=== PATIENT | male | born 1935 | race Caucasian/White ===

== ENCOUNTER 2023-06-20 12:21 | Emergency (ER) | payer MEDICARE, SELFPAY ==
[2023-06-20 12:34] VITALS: BP 113/56
--- NOTE | 2023-06-20 13:20 | ED.GENMED ---
History of Present Illness
General
Chief Complaint: Skin Problem
Source: patient and spouse
Exam Limitations: none
Time Seen by Provider: 06/20/23 13:08
Nursing documentation reviewed up to this point in time: agreed with
Travel History
Have you had any contact with someone who has COVID-19?: No
Do you have any symptoms of coronavirus? Fever > 100 degrees, chills, cough, shortness of breath, sore throat, loss of taste or smell, muscle aches, or headache?: No
History of Present Illness
History of Present Illness:
Patient is 87-year-old male who presents to the ER for evaluation. reports patient hit his left hand today on a door sustaining a skin tear and she was not able to get it to stop bleeding. Patient is on blood thinners. reports bleeding
has not stopped. Unsure of last tetanus.
Past History
Past History
ED Past Medical History: Arrthythmia (Atrial fibrillation), HTN, Hypercholesterolemia and Other (Renal insufficiency)
ED Past Surgical History: None
Patient has exhibited threatening behavior?: No
PSI?: No
Social History
Tobacco: Non-smoker
Alcohol: None
Drug: None
Personal:
Living: with family
Review of Systems
Review of Systems
Allergies reviewed?: Yes
Other source history: family
All Other Systems: ROS reviewed and negative except as documented in HPI and ROS
Constitutional: Reports no symptoms; Denies fever, fatigue or chills
Musculoskeletal: Reports other (skin tear to left hand )
Skin: Reports other (skin tear to left hand )
Neurological: Reports no symptoms
Psychiatric: Reports no symptoms
Phy Exam
General Physical Exam
General Presentation: no apparent distress
General age: appears stated age
General Skin: warm and dry
General Habitus: normal
General Mental: alert
General Hydration: appears well hydrated
Neurological Exam
Neurological Exam: alert and oriented x3
Musculoskeletal Exam
Musculoskeletal Exam: other ( LUE with scabbed over abrasion to dorsal left hand no bleeding )
Skin Exam
Skin Exam: normal color and warm/dry
Psychiatric Exam
Psychiatric Exam: normal mood/affect
Course
Orders/Labs/Results
Orders:
Orders
06/20/23 13:23
Tetanus/Diphth/Acelpertussis [Adacel] 0.5 ml IM .ONCE ONE
Vital Signs
Initial and Last Documented VS:
Initial Vital Signs
Temp Pulse Resp BP Pulse Ox
98.6 F 51 16 113/56 98
06/20/23 12:34 06/20/23 12:34 06/20/23 12:34 06/20/23 12:34 06/20/23 12:34
Last Documented Vital Signs
Temp Pulse Resp BP Pulse Ox
98.6 F 51 16 113/56 98
06/20/23 12:34 06/20/23 12:34 06/20/23 12:34 06/20/23 12:34 06/20/23 12:34
MDM/Problems Addressed
Differential Diagnosis Includes:
Not limited to abrasion, bleeding wound
MDM/Problems Addressed:
Patient has a scabbed over wound to left dorsal hand that is not bleeding. Tetanus was updated. I did redress and clean wound and discussed wound care with and patient.
Chronic conditions affecting care:
Patient is on blood thinners
*Critical Care Note
Total Time (30-74mins, 75-104mins- exclusive of procedures): Not Applicable
ED Attending Note
-
Portions of this chart may have been created with voice recognition software.� Occasional wrong word or��sound alike� substitutions may have occurred due to the inherent limitations of voice recognition software.
Discharge Plan
Departure
Patient Disposition: Home (Routine Discharge)
Date of Disposition: 06/20/23
Time of Disposition: 13:23
Patient with high blood pressure during this ER visit?: No
Condition: Fair
Covid-19: Not Applicable
Discharge Problem:
Abrasion
Instructions: Skin Abrasions (DC)
Prescriptions:
No Action
allopurinol 100 MG tablet
100 mg PO DAILY
simvastatin 20 MG tablet
20 mg PO QPM
finasteride 5 MG tablet
5 mg PO DAILY
lisinopril 20 MG tablet
20 mg PO DAILY
escitalopram oxalate 10 MG tablet
10 mg PO DAILY
Xarelto 15 mg Tablet
15 mg PO QPM
Hold Instructions: Resume on 06/23/22.
Patient Comments:
doesn't know mg
acetaminophen [Tylenol] 325 mg Tablet
650 mg PO Q4HPRN PRN (Reason: mild pain)
furosemide 20 mg tablet
20 mg PO DAILY
PreserVision AREDS 4,296 mcg-226 mg-90 mg Capsule
1 cap PO BID
carvedilol 3.125 mg Tablet
3.125 mg PO BID Qty: 60 0RF
pantoprazole [Protonix] 40 mg tablet,delayed release (DR/EC)
40 mg PO BID Qty: 60 0RF
doxycycline hyclate 100 mg capsule
100 mg PO BID Qty: 14 0RF
Referrals:
Boris Espana MD [Family Provider] -
Activity Restrictions/Additional Instructions:
Keep wound clean and dry and covered for 24 to 48 hours after 1 to 2 days remove outer dressings be sure to wet the area so wound does not stay to scab. Wash twice a day with soap and water pat dry apply small layer of antibiotic ointment to the
area keep covered. See family doctor in the next 2 to 3 days for reevaluation and wound check. Return if any worsening of symptoms signs of infection increased pain swelling redness drainage fever chills or bleeding.
Interventions
Interventions:
*General Assessment Last Done: 06/20/23 14:28
*ED COVID-19 Vaccine History Last Done: 06/20/23 12:34
*Nursing Disposition Last Done: 06/20/23 14:28
ED-Skin Assessment Last Done: 06/20/23 12:50
Discharge Date and Time
Discharge Date/Time: 06/20/23 14:10
[2023-06-20] MEDS: ADACEL 0.5 ML IM (13:49)
== END 2023-06-20 14:10 | disposition home or self-care (01) ==
LOC: EMR 12:21
PROVIDERS: EMERGENCY PHYSICIAN Student in an Organized Health Care Education/Training Program; FAMILY PHYSICIAN Family Medicine
DX: S60.512A Abrasion of left hand, initial encounter (principal); W22.09XA Striking against other stationary object, initial encounter; I48.91 Unspecified atrial fibrillation; E78.00 Pure hypercholesterolemia, unspecified; N28.9 Disorder of kidney and ureter, unspecified; I51.7 Cardiomegaly; I11.0 Hypertensive heart disease with heart failure; I50.9 Heart failure, unspecified; M19.90 Unspecified osteoarthritis, unspecified site; M10.9 Gout, unspecified; Z79.01 Long term (current) use of anticoagulants; Z96.653 Presence of artificial knee joint, bilateral
CPT/HCPCS: 99282; 90471; 90715

== ENCOUNTER 2023-07-16 05:39 | Inpatient (IN) | payer MEDICARE, SELFPAY ==
[2023-07-16] VITALS (30 sets, daily range): BP systolic 101–132; BP diastolic 55–77; PULSE 2–80; O2SAT 97; BMI 25.7; BMI 24.6
[2023-07-16 03:15] LABS: % Basophils 0.3 % (0-2); % Eosinophils 0.7 % (0-6); % Immature Granulocytes 0.4 % (0-0.5); % Lymphocytes 3.8 % (20.5-51.1); % Monocytes 5.4 % (1.7-9.3); % Neutrophils 89.4 % (42.2-75.2); Absolute Basophils 0.1 10^3/uL (0-0.2); Absolute Eosinophils 0.1 10^3/uL (0-0.7); Absolute Immature Granulocytes 0.1 10^3/uL (0-0.05); Absolute Lymphocytes 0.7 10^3/uL (1.2-3.4); Absolute Neutrophils 16.2 10^3/uL (1.4-6.5); Hemoglobin 11.4 g/dL (13.0-18.0); Mean Corp Hgb Conc. 32.6 g/dL (33.0-37.0); Mean Corpuscular Hgb 31.3 pg (27.0-31.0); Mean Corpuscular Volume 96.2 fL (80.0-94.0); Mean Platelet Volume 10.1 fL (7.4-10.4); Nucleated Red Blood Cells % 0 % (-); Platelet Count 141 10^3/uL (130-400); Red Blood Cell Count 3.64 10^6/uL (4.70-6.10); Red Cell Dist. Width 16.5 % (11.5-14.5); White Blood Cell Count 18.1 10^3/uL (4.8-10.8)
[2023-07-16 03:38] LABS: ALT (SGPT) 37 U/L (0-50); AST (SGOT) 63 U/L (17-59); Albumin 3.8 g/dl (3.5-5.0); Alkaline Phosphatase 204 U/L (38-126); Blood Urea Nitrogen 71 mg/dl (9-20); Carbon Dioxide 24 mmol/L (22-30); Chloride 103 mmol/L (98-107); Estimated Creatinine Clearance 28 ml/min; Glucose 133 mg/dl (70-99); Potassium 4.6 mmol/L (3.5-5.1); Sodium 139 mmol/L (135-145); Total Bilirubin 1.3 mg/dl (0.2-1.3); Total Protein 7.5 g/dl (6.3-8.2); eGFR 35.76
[2023-07-16 03:41] LABS: NT-proBNP 9200 pg/ml; Troponin I 0.052 ng/ml
--- NOTE | 2023-07-16 03:46 | ED.GENMED ---
History of Present Illness
<Bryan Al DO - Last Filed: 07/16/23 04:26>
General
Chief Complaint: Breathing Problem
Time Seen by Provider: 07/16/23 03:09
Travel History
Have you had any contact with someone who has COVID-19?: No
Do you have any symptoms of coronavirus? Fever > 100 degrees, chills, cough, shortness of breath, sore throat, loss of taste or smell, muscle aches, or headache?: No
<IBETH Long - Last Filed: 07/16/23 06:43>
General
Source: patient and family
History of Present Illness
History of Present Illness:
Pt is an 87 year old male with a past medical history of CHF, afib, cardiomegaly, HTN, hyperlipidemia arriving by EMS with SOB that began this morning. Pt woke this evening struggling to breath and called 911. Upon arrival pt's O2 on room air was
64%, was placed on CPAP and brought up to 88%. EMS note adventitious lung sounds audible from a distance. His family states he had some chills this morning but they deny any cough, fever, N/V/D, abdominal pain, headache, dizziness, or recent falls.
They note pt has a history of falls but has not fallen since beginning to use a walker.
Past History
<Bryan Al DO - Last Filed: 07/16/23 04:26>
Past History
ED Past Medical History: Arrthythmia (Atrial fibrillation), HTN, Hypercholesterolemia and Other (Renal insufficiency)
ED Past Surgical History: None
Patient has exhibited threatening behavior?: No
PSI?: No
Social History
Tobacco: Non-smoker
Alcohol: None
Drug: None
Personal:
Living: with family
<IBETH Long - Last Filed: 07/16/23 06:43>
General Physical Exam
General Presentation: well appearing
General age: appears stated age
General Skin: warm and dry
General Habitus: elderly
General Mental: alert
General Hydration: dry mucous membranes
Eye Exam
Eye Exam: conjunctiva normal
Cardiovascular Exam
Cardiovascular Exam: regular rate/rhythm, no edema, no gallop, no murmur and normal peripheral pulses
Pulmonary Exam
Respirations: moderate effort
Breath Sounds: Rhonchi: right upper and right lower
Gastrointestinal Exam
Gastrointestinal Exam: non tender, soft and non distended
Neurological Exam
Neurological Exam: alert
Skin Exam
Skin Exam: normal color and warm/dry
Psychiatric Exam
Psychiatric Exam: normal mood/affect
Scores
<Bryan Al DO - Last Filed: 07/16/23 04:26>
Heart Failure Risk
Heart Failure Risk Score: Yes
History of Stroke or TIA: No
History of intubation for respiratory distress: No
Heart rate on ED arrival >/= 110: No
SaO2 <90% on arrival on room air: Yes
HR >/=110 during 3min walk test (or too ill to perform test): Yes
ECG has acute ischemic changes: No
Urea >/=12mmol/L (BUN 33.6mg/dL): Yes
Serum CO2>/=35mmol/L: No
Troponin I or T elevated to [place] Level (0.4mg/dL): No
NT-proBNP >/=5,000ng/L (5,000pg/ml): Yes
HF Risk Score: 5
Admission Status: VERY HIGH RISK 39.8% Consider admission to hospital
<IBETH Long - Last Filed: 07/16/23 06:43>
Heart Failure Risk
HF Risk Score: 5
Admission Status: VERY HIGH RISK 39.8% Consider admission to hospital
Course
<Bryan Al, DO - Last Filed: 07/16/23 04:26>
Orders/Labs/Results
Orders:
Orders
07/16/23 03:06
Electrocardiogram (*1) Urgent
Reason for Study: Other
Other Reason for Exam: Respiratory Distress
Cardiac Monitoring- Treatment ONCE
EKG- Treatment ONCE
07/16/23 03:09
Complete Blood Count/With Diff Urgent
Comprehensive Metabolic Panel Urgent
NT-proBNP Urgent
Troponin I Urgent
07/16/23 03:18
CR Chest Portable - 1 View Urgent
Comment:
Reason For Exam: SOB
Reason Study Needs to be Portable: Patient Unstable
07/16/23 03:54
Furosemide [Lasix] 80 mg IV NOW STA
07/16/23 03:55
Piperacillin/Tazo 4.5 Gram [Zosyn] 4.5 gram in 100 ml IV NOW
07/16/23 05:23
Admit/Transfer Patient As Directed
Co-Sign Provider:
Level of Care: Inpatient admission
Assign to:: IMU- Intermediate Care
Physician / Group: Rangel
Diagnosis: Pneumonia, Acute Hypoxemic Resp Failure
Reason for Hospitalization: Pneumonia, Acute Hypoxemic Resp Failure
Expected length of stay greater than two midnights?: Yes
ELOS- Estimated Length of Stay in days: 3
I certify the patient meets the requirements for IP care: Yes
07/16/23 05:24
Code Status As Directed
Resuscitation Status: Do not resuscitate
Reached after discussion with pt or family/Healthcare POA: Yes
07/16/23 05:26
DNR Bracelet Application ONCE
Abnormal Lab Results
07/16/23
03:09
WBC 18.1 H 10^3/uL
(4.8-10.8)
RBC 3.64 L 10^6/uL
(4.70-6.10)
Hgb 11.4 L g/dL
(13.0-18.0)
Hct 35.0 L %
(39.0-52.0)
MCV 96.2 H fL
(80.0-94.0)
MCH 31.3 H pg
(27.0-31.0)
MCHC 32.6 L g/dL
(33.0-37.0)
RDW 16.5 H %
(11.5-14.5)
Abs Immat Gran (auto) 0.1 H 10^3/uL
(0-0.05)
Absolute Neuts (auto) 16.2 H 10^3/uL
(1.4-6.5)
Absolute Lymphs (auto) 0.7 L 10^3/uL
(1.2-3.4)
Absolute Monos (auto) 1.0 H 10^3/uL
(0.1-0.6)
Neutrophils % 89.4 H %
(42.2-75.2)
Lymphocytes % 3.8 L %
(20.5-51.1)
BUN 71 H mg/dl
(9-20)
Creatinine 1.8 H mg/dL
(0.7-1.3)
Glucose 133 H mg/dl
(70-99)
AST 63 H U/L
(17-59)
Alkaline Phosphatase 204 H U/L
(38-126)
Troponin I 0.052 H* ng/ml
07/16/23 03:09
07/16/23 03:09
Vital Signs
Initial and Last Documented VS:
Initial Vital Signs
Temp Pulse Resp BP Pulse Ox
97.8 F 79 28 124/69 91
07/16/23 03:07 07/16/23 03:07 07/16/23 03:07 07/16/23 03:07 07/16/23 03:07
Last Documented Vital Signs
Temp Pulse Resp BP Pulse Ox
97.8 F 76 25 123/55 94
07/16/23 03:07 07/16/23 06:30 07/16/23 06:30 07/16/23 06:00 07/16/23 06:30
<IBETH Long - Last Filed: 07/16/23 06:43>
Orders/Labs/Results
Orders:
Orders
07/16/23 03:06
Electrocardiogram (*1) Urgent
Reason for Study: Other
Other Reason for Exam: Respiratory Distress
Cardiac Monitoring- Treatment ONCE
EKG- Treatment ONCE
07/16/23 03:09
Complete Blood Count/With Diff Urgent
Comprehensive Metabolic Panel Urgent
NT-proBNP Urgent
Troponin I Urgent
07/16/23 03:18
CR Chest Portable - 1 View Urgent
Comment:
Reason For Exam: SOB
Reason Study Needs to be Portable: Patient Unstable
07/16/23 03:54
Furosemide [Lasix] 80 mg IV NOW STA
07/16/23 03:55
Piperacillin/Tazo 4.5 Gram [Zosyn] 4.5 gram in 100 ml IV NOW
07/16/23 05:23
Admit/Transfer Patient As Directed
Co-Sign Provider:
Level of Care: Inpatient admission
Assign to:: IMU- Intermediate Care
Physician / Group: Rangel
Diagnosis: Pneumonia, Acute Hypoxemic Resp Failure
Reason for Hospitalization: Pneumonia, Acute Hypoxemic Resp Failure
Expected length of stay greater than two midnights?: Yes
ELOS- Estimated Length of Stay in days: 3
I certify the patient meets the requirements for IP care: Yes
07/16/23 05:24
Code Status As Directed
Resuscitation Status: Do not resuscitate
Reached after discussion with pt or family/Healthcare POA: Yes
07/16/23 05:26
DNR Bracelet Application ONCE
Abnormal Lab Results
07/16/23
03:09
WBC 18.1 H 10^3/uL
(4.8-10.8)
RBC 3.64 L 10^6/uL
(4.70-6.10)
Hgb 11.4 L g/dL
(13.0-18.0)
Hct 35.0 L %
(39.0-52.0)
MCV 96.2 H fL
(80.0-94.0)
MCH 31.3 H pg
(27.0-31.0)
MCHC 32.6 L g/dL
(33.0-37.0)
RDW 16.5 H %
(11.5-14.5)
Abs Immat Gran (auto) 0.1 H 10^3/uL
(0-0.05)
Absolute Neuts (auto) 16.2 H 10^3/uL
(1.4-6.5)
Absolute Lymphs (auto) 0.7 L 10^3/uL
(1.2-3.4)
Absolute Monos (auto) 1.0 H 10^3/uL
(0.1-0.6)
Neutrophils % 89.4 H %
(42.2-75.2)
Lymphocytes % 3.8 L %
(20.5-51.1)
BUN 71 H mg/dl
(9-20)
Creatinine 1.8 H mg/dL
(0.7-1.3)
Glucose 133 H mg/dl
(70-99)
AST 63 H U/L
(17-59)
Alkaline Phosphatase 204 H U/L
(38-126)
Troponin I 0.052 H* ng/ml
07/16/23 03:09
07/16/23 03:09
Vital Signs
Initial and Last Documented VS:
Initial Vital Signs
Temp Pulse Resp BP Pulse Ox
97.8 F 79 28 124/69 91
07/16/23 03:07 07/16/23 03:07 07/16/23 03:07 07/16/23 03:07 07/16/23 03:07
Last Documented Vital Signs
Temp Pulse Resp BP Pulse Ox
97.8 F 76 25 123/55 94
07/16/23 03:07 07/16/23 06:30 07/16/23 06:30 07/16/23 06:00 07/16/23 06:30
<IBETH Long - Last Filed: 07/16/23 06:43>
*Pulse Oximetry
Patient hypoxic: no
*Critical Care Note
Total Time (30-74mins, 75-104mins- exclusive of procedures): Not Applicable
ED Attending Note
<Bryan Al DO - Last Filed: 07/16/23 04:26>
ED Attending Note
Patient seen and examined by attending physician: Yes
I performed the substantive portion of visit, reviewed & personally made and approve the management plan that is documented in note by myself or STUART.: Yes
ED Attending Note:
This a pleasant 87-year-old male brought in from home by [facility] with respiratory distress. called 911 when patient was having difficulty breathing. Upon arrival EMS reported his oxygen saturation was 64%. They gave him
nonrebreather and eventually applied CPAP. Oxygen saturation went up to 88%. Patient was also given nitroglycerin and route. Patient was seen in conjunction with the PA student. I have reviewed and agree with the history and treatment plan
presented. On my independent physical exam, patient is awake, alert, and oriented x3, resting much more comfortably when his CPAP was switched out for BiPAP. Patient does have a living will which suggest that BiPAP is acceptable but no invasive
procedures are permitted. Patient is a DNR and DNI.
Vital signs are stable. Patient not hypoxic
Nursing note reviewed. I agree with nursing documentation up to this point in time.
Home Meds and allergies reviewed.
NUMBER AND COMPLEXITY OF PROBLEMS ADDRESSED AT THE ENCOUNTER
� Chronic conditions affecting care: CHF, atrial fibrillation, cardiomegaly, hypertension, hyperlipidemia
� Acute Exacerbation and/or Progression of Chronic Illness: CHF
� Differential Diagnosis includes:
AMOUNT AND/OR COMPLEXITY OF DATA TO BE REVIEWED AND ANALYZED
I performed an independent evaluation of the following and my interpretation is:
EKG: Sinus tachycardia rate of 72 wide QRS rhythm. Left bundle branch block present seen on previous EKG. No evidence of acute ischemia present.
CT:
X-rays:
Ultrasound:
Laboratory Studies: Troponin 0.052, and elevated. proBNP is 9200.
Other:
Review of other/old records:
Clinical information was obtained by an independent historian:
Prescriptions/Medications Considered but not given:
Further testing considered but not performed:
RISK OF COMPLICATIONS AND/OR MORBIDITY OR MORTALITY OF PATIENT MANAGEMENT
Social determinants of health affecting care: Good Social Support
Discussion with other providers:
Escalation of care including admission/observation vs risk of discharge considered:
CRITICAL CARE NOTE:
Total Time (exclusive of procedures):
Update:
-
Portions of this chart may have been created with voice recognition software.� Occasional wrong word or��sound alike� substitutions may have occurred due to the inherent limitations of voice recognition software.
Discharge Plan
Departure
Patient Disposition: Admit
Date of Disposition: 07/16/23
Time of Disposition: 04:25
Admit to: Telemetry
Presentation/result/management discussed w/ accepting MD/DO: Hospitalist
Condition: Fair
Discharge Problem:
Pneumonia, CHF (congestive heart failure), DNR (do not resuscitate)
Interventions
Interventions:
*Risk Screen - Suicide Last Done: 07/16/23 03:07
*General Assessment Last Done: 07/16/23 03:07
*Neglect/Abuse Screening Last Done: 07/16/23 03:07
ED- Fall Risk Assessment Last Done: 07/16/23 04:00
*ED COVID-19 Vaccine History Last Done: 07/16/23 03:16
ED- Cardiac Assessment Last Done: 07/16/23 04:00
ED- Pulmonary Assessment Last Done: 07/16/23 04:00
[2023-07-16] MEDS: LASIX 40 MG IV (04:18)
[2023-07-16] MEDS: ZOSYN 100 IV (04:25)
--- NOTE | 2023-07-16 05:29 | HPS.HSE ---
Family Physician
-
Family Physician: Boris Espana
Chief Complaint
-
SOB / Cold
History of Present Illness
Patient is an 87y M with PMH significant for hypertension, A-Fib, CHF and CKD who presents to ED complaining of feeling cold and SOB this evening. History obtained from patient and his family at the bedside. Family notes that patient called for
them around 1:30 this AM. He complained of feeling cold and notes that he was shivering uncontrollably. She gave him extra blankets but could not get him warm. They called the PCP office who advised ED evaluation. EMS was called and patient
had very low SpO2 on initial assessment. He was brought to the ED for further evaluation and was started on BiPAP in the ED.
Patient was treated with IV Lasix and IV abx and at the time of my examination he is bright and alert on BiPAP and notes that he feels '100% better'.
Family states that patient has been feeling relatively well of late.
He has not had any noted cough, sore throat, etc. No significant edema or recent weight gain (fluctuates between 162 - 165 per patient).
No known sick contacts and no recent travel.
Medical History
Past Medical History
Past Medical History: Reports Other
Additional Past Medical History:
Cardiomyopathy / Chronic HFrEF
Paroxysmal Atrial Fibrillation
Hypertension
CKD III
Anxiety / Depression
Past Surgical History: Reports Other
Additional Past Surgical History:
Bilateral TKA
Lumbar Discectomy
SVT Ablation
Social History
Tobacco: Non-smoker
Alcohol: Occasional
Drug: None
Personal:
Living: With Family
Family History
Family History: Not pertinent
Allergies / Home Medications
Allergies reflects when Allergies were last updated in [employer].
Home Medications with original date entered in [employer]
Allergy/Medication List:
Allergies
Allergy/AdvReac Type Severity Reaction Status Date / Time
cephalexin Allergy Nausea / Verified 06/20/23 12:36
Vomiting
morphine Allergy Unknown Verified 06/20/23 12:36
Sulfa (Sulfonamide Allergy Unknown Verified 06/20/23 12:36
Antibiotics)
Home Medications
allopurinol 100 mg tablet 100 mg PO DAILY Gout 07/13/14
finasteride 5 mg tablet 5 mg PO DAILY Urinary issue 07/13/14
simvastatin 20 mg tablet 20 mg PO QPM High cholesterol 07/13/14
lisinopril 20 mg tablet 10 mg PO DAILY Blood pressure 04/07/16
escitalopram oxalate 10 mg tablet 5 mg PO DAILY Depression 12/07/17
acetaminophen 325 mg tablet (Tylenol) 650 mg PO Q4HPRN PRN mild pain 06/10/22
furosemide 20 mg tablet 40 mg PO BID Fluid retention/Swelling 06/17/22
vitamins A,C,[id number] 4,296 mcg-226 mg-90 mg capsule (PreserVision AREDS) 1 cap PO BID Supplement 06/17/22
carvedilol 3.125 mg tablet 3.125 mg PO BID #60 tabs 08/12/22
apixaban 2.5 mg tablet (Eliquis) 2.5 mg PO BID 07/16/23
Review of Systems
-
History Source: Patient and Family
A 12 point ROS was completed and negative except as noted: Yes
Constitutional: Reports Fatigue and Chills; Denies Fever
EENT: Denies Sore Throat
Respiratory: Reports Trouble Breathing; Denies Cough or Hemoptysis
Cardiac: Denies Chest Pain or Palpitations
Abdomen/GI: Denies Abdominal Pain, Nausea, Vomiting or Diarrhea
: Denies Dysuria or Frequency
Musculoskeletal: Denies Joint Pain or Edema
Neurological: Denies Dizzy or Headache
Psych: Denies Depression or Anxiety
Physical Exam
Vital Signs
Vital Signs
Temp Pulse Resp BP Pulse Ox
97.8 F 63 21 105/57 97
03/22/24 03:07 07/16/23 05:15 07/16/23 05:15 07/16/23 05:00 07/16/23 05:15
Physical Exam
General: Other (87y M resting comfortably in the ED on BiPAP.)
HEENT: Moist mucous membranes, PERRLA and Other (Pos JVD to the angle of the mandible.)
Respiratory: Other (Scattered rales. Coarse rhonchi over the R lower lung rodriguez.)
Cardiac: S1/S2, Irregular Rhythm and Murmur (III/ JEANETTE)
GI: Soft, Non Tender, Non Distended and Normal Bowel Sounds
Musculoskeletal: No Clubbing, No Cyanosis and Other (Trace - 1+ edema b/l ankles.)
Neuro: AO x 3
Laboratory Results
-
07/16/23 03:09
07/16/23 03:09
Laboratory Results
Total Bilirubin 1.3 mg/dl (0.2-1.3) 07/16/23 03:09
AST 63 U/L (17-59) H 07/16/23 03:09
ALT 37 U/L (0-50) 07/16/23 03:09
Alkaline Phosphatase 204 U/L (38-126) H 07/16/23 03:09
Troponin I 0.052 ng/ml H* 07/16/23 03:09
Impression/Plan
-
A/P: Patient is an 87y M with PMH significant for A-Fib, CHF and HTN who presents to ED for evaluation of shaking chills, SOB and hypoxemia.
RLL Pneumonia
Acute Hypoxemic Respiratory Failure secondary to the above
- Admit for further evaluation and treatment.
- Patient with rigors / chills at home and CXR with patchy R base infiltrate c/w pneumonia.
- IV abx, mucolytics, supportive care.
- Continue O2 support - trial off of BiPAP here in the ED as patient appears very comfortable at present.
- Follow for clinical improvement and transition to PO abx when appropriate.
- Patient family deny any issues with swallowing, coughing / choking during meals, etc.
Acute on Chronic HFrEF
- Suspect that this is largely decompensation secondary to cor pulmonale / primary pulm process / pneumonia as noted above.
- Patient compliant with diuretic, salt restriction, daily weights, etc.
- Has metolazone to take PRN for weight > 170 - and he never reaches that number.
- Continue IV Lasix for now and follow daily weights, I/Os, etc.
- Treat underlying pneumonia as noted above.
- Return to usual PO regimen once appropriate.
- Update Echo - last done 05/2022 with LVEF = 35-40%, moderate TR / pulmonary hypertension.
Abnormal Troponin
- Suspect this is secondary to CHF / CKD and not an acute process.
- EKG with chronic LBBB.
- Continue to trend and consider Cardio evaluation if any new symptoms / changes in troponin.
Paroxysmal Atrial Fibrillation
- Stable. Continue usual med regimen including Eliquis for stroke risk reduction.
CKD III-IV
- Stable. SCr = 1.8 today. Last value here was 1.3; however, recent outpatient SCr = 2.03 (07/08).
- Follow for changes with diuresis / volume status.
DVT Prophylaxis: On Eliquis
Code Status: DNR
--- NOTE | 2023-07-16 08:32 | W.PN.UPDATE ---
Update Note
Progress Note Update
Admitted this morning with headache for chills and shortness of breath.
Noted to have right-sided by bilobar pneumonia and possibly secondary CHF decompensation.
Patient currently in ICU on 10 L of oxygen. He feels comfortable he feels improved. No further chills. Breathing okay at rest. No chest pains. Cough present but does not bring up much phlegm.
Nontoxic looking. Blood pressure stable. Saturating 97% on nasal cannula.
No respiratory distress.
No active bronchospasm but he has crackles bilaterally.
Continue with antibiotics and diuretics as planned. Follow-up echocardiogram.
Wean oxygen. For now transfer to IMU as he is still requiring 10 L of oxygen.
[2023-07-16] MEDS: PROSCAR 5 MG PO (09:00)
[2023-07-16] MEDS: MUCINEX 600 MG PO ×2 (09:00→20:07)
[2023-07-16] MEDS: COREG 3.125 MG PO ×2 (09:00→20:07)
[2023-07-16] MEDS: ZESTRIL 10 MG PO (09:00)
[2023-07-16] MEDS: ELIQUIS 2.5 MG PO ×2 (09:00→20:08)
[2023-07-16] MEDS: ZYLOPRIM 100 MG PO (09:00)
[2023-07-16 10:01] LABS: Troponin I 0.101 ng/ml
[2023-07-16 10:03] LABS: COVID-19 Antigen Negative (Negative)
[2023-07-16] MEDS: ZOSYN 50 IV ×3 (11:00→21:40)
[2023-07-16] MEDS: LEXAPRO 5 MG PO (12:00)
--- NOTE | 2023-07-16 12:06 | PTOTSP ---
ST Evaluation
Oropharyngeal function appears intact at the bedside
Pt received awake/alert seated upright on edge of bed with meal of regular solids/thin liquids. Denied any difficulty swallowing or s/sx of aspiration leading up to admission. Respirations appeared even/unlabored on 10Lo2 via nasal cannula. SPO2
remained stable >98% throughout eval.
Self fed trials of regular solids demo functional mastication and bolus was orally cleared. Thin liquids by cup and straw sip swallow appears timely. No overt s/sx of aspiration observed.
Recommend
1. Continue regular solids/thin liquids
2. Standard aspiration precautions
3. Meds oral with sips of water
4. ELECTRO MECHANICAL ENGINEER signing off please reconsult as needed
--- NOTE | 2023-07-16 12:39 | CM ---
CM following re: discharge planning.
Discussed in rounds, reviewed pt's chart, met with pt.
Pt is an 87 year old male, admitted with primary dx of RLL Pneumonia. Pt currently requires 10 L midflow NC of O2.
Pt reports he lives with spouse in a 2SH, 4 steps to enter, has supportive son Kirill. Pt reports he ambulates with a walker and a cane, known to [facility] home.
PT and OT evaluations noted - home PT vs no needs recommended. pt preferred to resume [facility] at home.
PCP: Boris Espana
Pharmacy: [facility]
D/C plan: home with [facility]. Monitoring Oxygen requirement for a possible needs of home O2.
CM will follow with discharge plan updates as hospitalization progresses
--- NOTE | 2023-07-16 12:44 | PTCARENOTE ---
Pt arrived this am to ICU from the ER via stretcher. Pt is awake and alert, oriented x3, sl REDDING. Pt with 'possible SR' as per Dr Rankin, 'with first degree heart block, L BBB, and a widen QRS'. Pt denies any chest discomfort. trops elevated 0.052,
0.101. Cardiac echo done at bedside. P/T saw pt and speech/swallow cleared pt for reg food. Pt ate his breakfast without any difficulties. Pt assisted to chair, with nurse and walker, also once to bedside commode, where he had a large soft brown BM.
Pt voided several times today in urinal yellow urine. Pt received on 10 L NC, now on 8 L NC, tolerating well. O2 sat=98%. Lobes clear, sl diminished at bases.
[2023-07-16] MEDS: LIPITOR 10 MG PO (18:48)
--- NOTE | 2023-07-16 18:57 | PTCARENOTE ---
Pt remains OOB to chair x 5 hrs, and would like to stay out a little longer. Pt did ambulate to bedside commode with qne person assist and walker, tolerated very well. O2 weaned down throughout day to 6 L NC, O2 sat=95%. I/S con'ts to be done q 1
hr. Call rodriguez at bedside within reach.
--- NOTE | 2023-07-16 20:45 | PTCARENOTE ---
Assume care from AM RN. VSS. afebrile and no c/o pain. AAOx3, pleasant, UPPER [place], gen weakness. NSR to SB in the monitor. Lung sounds are diminished and fine crackles at the bases. SaO2 95-075 6L. Dyspneic w/ exertion, shallow. nonproductive cough. At
the pt is incontinent of bowel and bladder. pt appears comfortable in bed and call rodriguez within reach.
[2023-07-17] VITALS (15 sets, daily range): BP systolic 90–140; BP diastolic 47–82; PULSE 56; O2SAT 98; BMI 24.4
[2023-07-17] MEDS: ZOSYN 50 IV ×4 (04:08→21:25)
[2023-07-17 04:39] LABS: Hematocrit 29.9 % (39.0-52.0); Hemoglobin 9.9 g/dL (13.0-18.0); Mean Corp Hgb Conc. 33.1 g/dL (33.0-37.0); Mean Corpuscular Hgb 31.4 pg (27.0-31.0); Mean Corpuscular Volume 94.9 fL (80.0-94.0); Platelet Count 115 10^3/uL (130-400); Red Blood Cell Count 3.15 10^6/uL (4.70-6.10); Red Cell Dist. Width 16.4 % (11.5-14.5); White Blood Cell Count 9.2 10^3/uL (4.8-10.8)
[2023-07-17 05:06] LABS: ALT (SGPT) 26 U/L (0-50); AST (SGOT) 32 U/L (17-59); Albumin 3.4 g/dl (3.5-5.0); Alkaline Phosphatase 153 U/L (38-126); Blood Urea Nitrogen 73 mg/dl (9-20); Calcium 8.9 mg/dl (8.4-10.2); Carbon Dioxide 25 mmol/L (22-30); Chloride 100 mmol/L (98-107); Estimated Creatinine Clearance 27 ml/min; Glucose 105 mg/dl (70-99); Potassium 4.6 mmol/L (3.5-5.1); Sodium 136 mmol/L (135-145); Total Protein 6.7 g/dl (6.3-8.2); eGFR 33.51
[2023-07-17] MEDS: MUCINEX 600 MG PO ×2 (07:58→21:25)
[2023-07-17] MEDS: PROSCAR 5 MG PO (07:58)
[2023-07-17] MEDS: COREG 3.125 MG PO ×2 (07:59→21:26)
[2023-07-17] MEDS: ELIQUIS 2.5 MG PO ×2 (07:59→21:25)
[2023-07-17] MEDS: ZESTRIL 10 MG PO (08:00)
[2023-07-17] MEDS: ZYLOPRIM 100 MG PO (08:00)
[2023-07-17] MEDS: LEXAPRO 5 MG PO (08:03)
[2023-07-17] MEDS: LASIX 40 MG IV (08:03)
--- NOTE | 2023-07-17 08:27 | W.PN.HOSP.TC ---
Today's Communication/Plan
-
Continue with IV Zosyn
Consult cardiology
Transfer to telemetry
Assessment / Plan
Assessment / Plan
A/P:� Patient is an 87y M with PMH significant for A-Fib, CHF and HTN who presents to ED for evaluation of shaking chills, SOB and hypoxemia.
RLL Pneumonia
Acute Hypoxemic Respiratory Failure secondary to the above
�- Patient with rigors / chills at home and CXR with patchy R base infiltrate c/w pneumonia.
- Improving clinical symptoms, improving oxygenation, normalized white
�- cw IV abx, mucolytics, supportive care.
�- Continue O2 support .
�- Follow for clinical improvement and transition to PO abx when appropriate.
�- Patient family deny any issues with swallowing, coughing / choking during meals, etc.
- ROOFER HELPER VINYL COATING sonia noted - ok for regular diet
Acute on Chronic HFrEF
�- Suspect that this is largely decompensation secondary to cor pulmonale / primary pulm process / pneumonia as noted above.
�- Patient compliant with diuretic, salt restriction, daily weights, etc.
�- Has metolazone to take PRN for weight > 170 - and he never reaches that number.
�- Continue IV Lasix for now and follow daily weights, I/Os, etc;wt is the lowest based on available data in [employer]
�- Treat underlying pneumonia as noted above.
�- Return to usual PO regimen once appropriate.
�- Update Echo - last done 05/2022 with LVEF = 35-40%, moderate TR / pulmonary hypertension; EF slightly reduced to 30-35% and PASP is somewhat higher 72mmgHg
- Consult Cards
Abnormal Troponin
�- Suspect this is secondary to CHF / CKD and not an acute process.
�- EKG with chronic LBBB.
�- Continue to trend and consider Cardio evaluation if any new symptoms / changes in troponin.
Paroxysmal Atrial Fibrillation
�- Stable.� Continue usual med regimen including Eliquis for stroke risk reduction.
CKD III-IV
�- Stable.� SCr = 1.9 today.� Last value here was 1.3; however, recent outpatient SCr = 2.03 (07/08).
�- Follow for changes with diuresis / volume status.
DVT Prophylaxis:� On Eliquis
Code Status:� DNR
Tx to tele
Anticipated Discharge: > 48 hours
Subjective/Interval History
-
Date of Service: July 17, 2023
Improved breathing. Denies any chest pain. Denying any cough. No fever or chills.
Improved oxygenation-down from 10 L to 6 L.
Objective Data
-
Labs:
Laboratory Results
07/17/23
04:07
WBC 9.2
Hgb 9.9 L
Hct 29.9 L
Plt Count 115 L
Sodium 136
Potassium 4.6
Chloride 100
Carbon Dioxide 25
BUN 73 H
Creatinine 1.9 H
Glucose 105 H
Calcium 8.9
Total Bilirubin 2.0 H
AST 32
ALT 26
Alkaline Phosphatase 153 H
Vital Signs:
Vital Signs
Temp Pulse Resp BP Pulse Ox
97.3 F 56 17 130/74 97
07/17/23 08:11 07/17/23 08:03 07/17/23 06:00 07/17/23 08:03 07/17/23 06:00
I&O
07/16/23 07/17/23 07/18/23
06:59 06:59 06:59
Intake Total 845 / 845
Output Total 120 / 120 1850 / 1850
Balance -120 / -120 -1005 / -1005
Review of Systems
-
Constitutional: Denies Fever
EENT: Denies Sore Throat
Abdomen/GI: Denies Abdominal Pain, Nausea or Vomiting
Neuro: Denies Dizzy
Physical Exam
-
General: No Apparent Distress
HEENT: Moist Mucous Membranes
Respiratory: Crackles (Rt lower zone); Negative Wheezes
Cardiac: Regular Rhythm and S1/S2; Negative Tachycardic
GI: Soft
Neuro: AO x 3
Psych: Calm; Negative Confused
Data Reviewed
-
Labs: Labs Reviewed by me
--- NOTE | 2023-07-17 10:07 | CON.CAR ---
Addendum entered and electronically signed by Loki Sanchez MD 07/17/23 12:26:
87 yo male with PMH of CAD, ICM EF 30-35%, chronic systolic HF, CKD3b is admitted with PNA. We are consulted for HF. Today, he reports improved SOB, and no edema. Exam with RRR, II/ systolic murmur at RUSB, no edema. Cr 1.9.
Acute on chronic systolic HF. Improved s/p IV lasix. Transition to his home regimen tomorrow: lasix 80mg, and 120mg daily on alternating days.
NOAH: hold lisinopril pending labs in AM.
ICM. He declined cath as outpatient. Discussion has been ongoing regarding ANIMAL NUTRITIONIST-D.
Original Note:
Consultation
Consultation Request
Date/Time Consultation Requested: 07/17/23 7064
Date/Time Consultation Performed: 07/17/23 1015
Requesting Provider: Dr. Wren
Performing Provider: Sandra JUÁREZ for Dr. Sanchez
Reason for Consultation: CHF
Medical History
-
Chief Complaint: SOB
History of Present Illness:
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
moderate/severe TR, mildly dilated aortic root, dyslipidemia, and CKD3b who is here for evaluation of SOB, which started two nights ago. Apparently also had chills. His sats were in the 60's and required BiPAP. CXR was concerning for PNA. He is on
ABX. He received IV lasix as well. He is now feeling improved and is on O2 by nasal cannula without any distress. He denies any CP.
Past Medical History
Past Medical History: Arrhythmias, CAD, CHF, HTN, Renal Failure and Valvular Disease
Social History
Tobacco: Non-Smoker
Personal:
Living: With Family
Family History
Family History: Reviewed & Not Pertinent
Allergies / Home Medications
Allergy/AdvReac Type Severity Reaction Status Date / Time
cephalexin Allergy Nausea / Verified 06/20/23 12:36
Vomiting
morphine Allergy Unknown Verified 06/20/23 12:36
Sulfa (Sulfonamide Allergy Unknown Verified 06/20/23 12:36
Antibiotics)
Medication Instructions Recorded Confirmed Type
allopurinol 100 mg tablet 100 mg PO DAILY Gout 07/13/14 07/16/23 History
finasteride 5 mg tablet 5 mg PO DAILY Urinary issue 07/13/14 07/16/23 History
simvastatin 20 mg tablet 20 mg PO QPM High cholesterol 07/13/14 07/16/23 History
lisinopril 20 mg tablet 10 mg PO DAILY Blood pressure 04/07/16 07/16/23 History
escitalopram oxalate 10 mg tablet 5 mg PO DAILY Depression 12/07/17 07/16/23 History
acetaminophen 325 mg tablet 650 mg PO Q4HPRN PRN mild pain 06/10/22 07/16/23 History
(Tylenol)
furosemide 40 mg tablet 120 mg alternating with 80 mg daily
vitamins A,C,L-ksko-auxljp 4,296 1 cap PO BID Supplement 06/17/22 07/16/23 History
mcg-226 mg-90 mg capsule
(PreserVision AREDS)
carvedilol 3.125 mg tablet 3.125 mg PO BID #60 tabs 08/12/22 07/16/23 Rx
apixaban 2.5 mg tablet (Eliquis) 2.5 mg PO BID Blood Clot 07/16/23 07/16/23 History
Prevention/Tx
Review of Systems
-
History Source: Patient
All other systems: Negative unless noted
Constitutional: Chills
Respiratory: Trouble Breathing
Physical Exam
Vital Signs
Temp Pulse Resp BP Pulse Ox
97.3 F 56 15 130/74 98
07/17/23 08:11 07/17/23 08:03 07/17/23 08:00 07/17/23 08:03 07/17/23 08:53
Lab Results
07/17/23 04:07
07/17/23 04:07
Troponin I Cancelled 07/16/23 19:50
Qyn-Y-Tkidjhecbfd Pept 9200 pg/ml 07/16/23 03:09
Physical Exam
General: Well Developed and No Apparent Distress
HEENT: Normocephalic and Anicteric
Respiratory: Other (coarse lung sounds to bases)
Cardiac: Regular Rhythm
Skin: Warm and Dry
Neuro: AO x 3
Psych: Calm
Impression / Plan
-
PNA: severe, improving
-on ABX
-seems to be improving
-remains on O2 by NC
-management per primary team
HFrEF: chronic
-recent echo as below
-weight stable, no edema
-I will resume his usual Lasix 80 mg daily alternating with 120 mg PO daily
-follow volume
ICM EF 30-35%:
-on BB and ACEI (Entresto caused NOAH and hyperkalemia). Otherwise, doses limited by HR/BP.
-OP discussion regarding ANIMAL NUTRITIONIST-D.
Abnormal troponin:
-suspect acute non-ischemic myocardial injury in setting of acute illness with PNA with hypoxemia
-denies any CP
PAF:
-stable in SR
-continue Eliquis
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
-stable, follow tele
CAD:
-stable without CP
CKD:
-follow creatinine
Data Reviewed
-
EKG: Tracing Personally Visualized and interpreted (SB with LBBB 1st degree AVB)
Radiology: Report Reviewed by me (CXR 07/16/23: Large right lung opacity suspicious for pneumonia.)
Medical Tests (Nuc Med, Echo etc): Report Reviewed by me (Echo 07/16/23: EF 30-35%. Global hypokinesis. Stage II diastolic dysfunction. Mild aortic stenosis, aortic regurgitation. Enlarged right ventricular size. Reduced right ventricular systolic
function. Moderate tricuspid regurgitation. Severely elevated PASP. Estimated pulmonary artery pressure of 79)
Labs: Labs Reviewed by me
--- NOTE | 2023-07-17 13:14 | PTCARENOTE ---
Complete assessment done this am. Pt remains oriented x3, resting comfortably in bed. O2 weaned to 4l nc, o2 sat=94%, I/S con'ts to being done q1-2 hrs while awake, now reaching TV 200. Pt seen by Dr Snow and Dr Sanchez today. Pt's son now visiting
in room and updated.
--- NOTE | 2023-07-17 13:53 | PTCARENOTE ---
Pt assisted OOB to commode. Pt had mod size brown BM, Elaine care done. Pt then assisted to sitting in chair using walker. Pt tolerating OOB in chair well. Cont's on 4l nc, 97% sat
[2023-07-17] MEDS: LIPITOR 10 MG PO (17:15)
[2023-07-18] VITALS (14 sets, daily range): BP systolic 94–134; BP diastolic 53–73; PULSE 53–59; O2SAT 98; BMI 24.4
[2023-07-18] MEDS: ZOSYN 50 IV ×4 (04:54→22:04)
[2023-07-18 05:35] LABS: Hematocrit 28.8 % (39.0-52.0); Hemoglobin 9.6 g/dL (13.0-18.0); Mean Corp Hgb Conc. 33.3 g/dL (33.0-37.0); Mean Corpuscular Hgb 31.3 pg (27.0-31.0); Mean Corpuscular Volume 93.8 fL (80.0-94.0); Mean Platelet Volume 10.1 fL (7.4-10.4); Platelet Count 108 10^3/uL (130-400); Red Blood Cell Count 3.07 10^6/uL (4.70-6.10); Red Cell Dist. Width 16.4 % (11.5-14.5)
[2023-07-18 05:57] LABS: Blood Urea Nitrogen 71 mg/dl (9-20); Calcium 8.7 mg/dl (8.4-10.2); Carbon Dioxide 24 mmol/L (22-30); Chloride 105 mmol/L (98-107); Estimated Creatinine Clearance 28 ml/min; Glucose 91 mg/dl (70-99); Potassium 4.2 mmol/L (3.5-5.1); Sodium 135 mmol/L (135-145); eGFR 35.76
--- NOTE | 2023-07-18 07:57 | W.PN.HOSP.TC ---
Today's Communication/Plan
-
Continue antibiotics
Continue diuretics per cardiology
Wean oxygen
Assessment / Plan
Assessment / Plan
A/P:� Patient is an 87y M with PMH significant for A-Fib, CHF and HTN who presents to ED for evaluation of shaking chills, SOB and hypoxemia.
RLL Pneumonia
Acute Hypoxemic Respiratory Failure secondary to the above
�- Patient with rigors / chills at home and CXR with patchy R base infiltrate c/w pneumonia.
- Improving clinical symptoms, improving oxygenation, normalized white.
�- cw IV abx, mucolytics, supportive care.
�- Continue O2 support .Wean as able.
- SCHOOL CROSSING GUARD eval noted - ok for regular diet
Bacteremia - 1/2 on adx showing GPC in cluster -await identification. Afebrile . Follow identification.
Acute on Chronic HFrEF
�- Suspect that this is largely decompensation secondary to cor pulmonale / primary pulm process / pneumonia as noted above.
�- Patient compliant with diuretic, salt restriction, daily weights, etc.
�- Has metolazone to take PRN for weight > 170 - and he never reaches that number.
�- Continue IV Lasix per cards. Improved wt.
�- Treat underlying pneumonia as noted above.
�- Return to usual PO regimen once appropriate.
�- Update Echo - last done 05/2022 with LVEF = 35-40%, moderate TR / pulmonary hypertension; ECHO on this admission shows EF slightly reduced to 30-35% and PASP is somewhat higher 72mmgHg
- Cards following
Abnormal Troponin
�- Suspect this is secondary to CHF / CKD and not an acute process.
�- EKG with chronic LBBB.
�- Continue to trend and consider Cardio evaluation if any new symptoms / changes in troponin.
Paroxysmal Atrial Fibrillation
�- Stable.� Continue usual med regimen including Eliquis for stroke risk reduction.
CKD III-IV
�- Stable.� SCr = 1.8 today.� Last value here was 1.3; however, recent outpatient SCr = 2.03 (07/08).
�- Follow for changes with diuresis / volume status.
Mild thrombocytopenia - suspect may be related to infection -follow
Chronic normocytic anemia-hemoglobin at his baseline. Check iron stores
DVT Prophylaxis:� On Eliquis
Code Status:� DNR
Tx to tele
Anticipated Discharge: 24 - 48 hours
Subjective/Interval History
-
Date of Service: July 18, 2023
With continued improvement.
Breathing improved. No fever.
Objective Data
-
Labs:
Laboratory Results
07/18/23
05:04
WBC 8.0
Hgb 9.6 L
Hct 28.8 L
Plt Count 108 L
Sodium 135
Potassium 4.2
Chloride 105
Carbon Dioxide 24
BUN 71 H
Creatinine 1.8 H
Glucose 91
Calcium 8.7
Vital Signs:
Vital Signs
Temp Pulse Resp BP Pulse Ox
97.8 F 59 16 128/73 99
07/18/23 07:00 07/18/23 06:00 07/18/23 06:00 07/18/23 06:00 07/18/23 06:00
I&O
07/17/23 07/18/23 07/19/23
06:59 06:59 06:59
Intake Total 845 / 845 940 / 940
Output Total 1850 / 1850 850 / 850
Balance -1005 / -1005 90 / 90
Review of Systems
-
Constitutional: Denies Fever
EENT: Denies Sore Throat
Respiratory: Denies Cough
Cardiac: Denies Chest Pain
Abdomen/GI: Denies Nausea or Vomiting
Neuro: Denies Dizzy
Physical Exam
-
General: Comfortable
HEENT: Moist Mucous Membranes
Respiratory: Crackles (rt basal area) and Non Labored Respirations; Negative Wheezes or Accessory Resp Muscle Use
Cardiac: Regular Rhythm and S1/S2
GI: Soft
Neuro: AO x 3
Data Reviewed
-
Labs: Labs Reviewed by me
[2023-07-18] MEDS: COREG PO (08:23)
[2023-07-18] MEDS: LEXAPRO 5 MG PO (08:23)
[2023-07-18] MEDS: ELIQUIS 2.5 MG PO ×2 (08:24→20:38)
[2023-07-18] MEDS: MUCINEX 600 MG PO ×2 (08:25→20:39)
[2023-07-18] MEDS: ZYLOPRIM 100 MG PO (08:26)
[2023-07-18] MEDS: PROSCAR 5 MG PO (08:26)
[2023-07-18] MEDS: LASIX 80 MG PO (08:32)
--- NOTE | 2023-07-18 09:13 | PTCARENOTE ---
Complete assessment done, Pt remains in pleasant spirits. Resting comfortably. Dr Sanchez in to see pt, and was updated that his coreg 3.125mg was held this am for HR 51, following parameters. Dr Sanchez would like pt to con't receiving his coreg dose,
and will change the hold parameters to < HR 50. BP stable 131/81. PT denies any SOB, O2 sat=99 on 4l NC. Call rodriguez at side, pt turning without difficulty.
[2023-07-18 09:22] LABS: Iron 89 ug/dl (49-181)
--- NOTE | 2023-07-18 09:25 | W.PN.CD ---
Today's Communication / Plan
-
continue coreg and PO lasix
trend Cr and tele
Impression / Plan
-
PNA: severe, improving
-on ABX
-seems to be improving
-remains on O2 by NC
HFrEF: acute on chronic
-improved s/p IV lasix
-continue home regimen of Lasix 80 mg PO daily alternating with 120 mg PO daily
ICM EF 30-35%:
-continue coreg 3.125mg bid (limited by HR)
-lisinopril on hold due to NOAH
-did not tolerate entresto or aldactone due to hyperkalemia and NOAH as outpatient
-no SGLT2i due to NOAH
-OP discussion regarding OUTSIDE PLANT CABLE ENGINEER-D: patient has been considering, but has not decided.
Abnormal troponin:
-acute non-ischemic myocardial injury in setting of acute illness with PNA with hypoxemia
-denies any CP
Parox AFib:
-stable in SR
-continue Eliquis
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
-stable, follow tele
CAD:
-stable without CP
CKD3b:
-follow creatinine
echo 07/15/22
Moderately reduced left ventricular systolic function. Left ventricular
�ejection fraction is 30-35%.
�Global hypokinesis.
�Stage II diastolic dysfunction suggestive of abnormal relaxation and increased
�filling pressures.
�Mild aortic stenosis. Mild aortic regurgitation.
�Enlarged right ventricular size. Reduced right ventricular systolic function.
�Moderate tricuspid regurgitation. Severely elevated PASP. Estimated pulmonary
�artery pressure of 79 mmHg, assuming a right atrial pressure of 15 mmHg.
�Mildly dilated aortic root (SOV 4.1 cm), and proximal ascending aorta (4.1 cm).
Physical Exam
Vital Signs/Labs
Vital Signs
Temp Pulse Resp BP Pulse Ox
97.8 F 54 16 124/68 99
07/18/23 07:00 07/18/23 08:32 07/18/23 06:00 07/18/23 08:32 07/18/23 06:00
07/17/23 07/18/23 07/19/23
06:59 06:59 06:59
Actual Weight 74.9 kg 74.8 kg
07/18/23 05:04
07/18/23 05:04
07/16/23
03:09
Tqv-U-Prupozrwjbs Pept 9200
LAB Results
07/16/23 07/16/23 07/16/23
03:09 09:10 13:49
Troponin I 0.052 H* 0.101 H* D 0.100 H*
07/16/23
19:50
Troponin I Cancelled
Physical Exam
Constitutional: No acute distress and Comfortable
EENT: Moist mucous membranes
Cardiovascular: Rhythm & rate is regular, Pedal edema is absent, JVD pressure is normal and Systolic murmur present
Respiratory: Respiratory effort normal and Lungs clear to auscul.
GI: Soft and Distention absent
Neuro/Psych: AO x 3
Data Reviewed
-
Date of Service: July 18, 2023
EKG: Other (Tele: SB, PVC's)
Echo: Report Reviewed by me (per note)
Labs: Labs Reviewed by me
[2023-07-18 09:32] LABS: Percent Saturation 34 % (20-50); Total Iron Binding Capacity 256 ug/dl (261-462)
[2023-07-18] MEDS: COREG 3.125 MG PO ×2 (09:42→20:39)
--- NOTE | 2023-07-18 12:57 | PTCARENOTE ---
Pt assisted OOB to chair, foam drsg to sacrum for protection. Pt had soft BM on commode. Elaine care done, and pt back to bed with walker and 1 person assist. Pt weaned down to 2l nc, o2 sat=96%
--- NOTE | 2023-07-18 14:34 | PTCARENOTE ---
Pt able to walk in hallway with walker and P/T, 2l nc 89% sat with exercise, and 94% at rest. Pt has been doing his I/S q1 hr, reaching 2000 TV. Pt cleared to go to banner room tele 3W. All belongings packed, report given to new nurse Shyla, room
319-1. Pt being brought over now in wheelchair, with night monitor, and port O2.
[2023-07-18] MEDS: LIPITOR 10 MG PO (17:38)
[2023-07-19] VITALS (7 sets, daily range): BP systolic 98–136; BP diastolic 49–70; PULSE 51–55; BMI 24.4
[2023-07-19] MEDS: ZOSYN 50 IV ×2 (03:53→09:47)
[2023-07-19 06:43] LABS: Hematocrit 29.1 % (39.0-52.0); Hemoglobin 9.9 g/dL (13.0-18.0); Mean Corpuscular Hgb 31.6 pg (27.0-31.0); Mean Platelet Volume 10.3 fL (7.4-10.4); Platelet Count 118 10^3/uL (130-400); Red Blood Cell Count 3.13 10^6/uL (4.70-6.10); Red Cell Dist. Width 16.3 % (11.5-14.5); White Blood Cell Count 7.8 10^3/uL (4.8-10.8)
[2023-07-19 07:09] LABS: Blood Urea Nitrogen 64 mg/dl (9-20); Calcium 9.3 mg/dl (8.4-10.2); Carbon Dioxide 24 mmol/L (22-30); Chloride 100 mmol/L (98-107); Estimated Creatinine Clearance 27 ml/min; Glucose 90 mg/dl (70-99); Potassium 4.1 mmol/L (3.5-5.1); Sodium 136 mmol/L (135-145); eGFR 33.51
[2023-07-19] MEDS: LEXAPRO 5 MG PO (07:21)
[2023-07-19] MEDS: MUCINEX 600 MG PO ×2 (07:21→20:14)
[2023-07-19] MEDS: ELIQUIS 2.5 MG PO ×2 (07:21→20:15)
[2023-07-19] MEDS: COREG 3.125 MG PO ×2 (07:21→20:15)
[2023-07-19] MEDS: LASIX 120 MG PO (07:22)
[2023-07-19] MEDS: ZYLOPRIM 100 MG PO (07:22)
[2023-07-19] MEDS: PROSCAR 5 MG PO (07:22)
--- NOTE | 2023-07-19 08:34 | W.PN.CD ---
Today's Communication / Plan
-
Stable from cardiac perspective.
Continue PO lasix: alternating days of 80mg and 120mg daily.
Continue coreg 3.125mg bid, eliquis 2.5mg bid.
Lisinopril stopped this admission due to NOAH.
We will arrange for follow up with us.
Please call us back with additional questions.
Impression / Plan
-
PNA: severe, improving
-on ABX
-seems to be improving
-remains on O2 by NC
HFrEF: acute on chronic
-improved s/p IV lasix
-continue home regimen of Lasix 80 mg PO daily alternating with 120 mg PO daily
ICM EF 30-35%:
-continue coreg 3.125mg bid (limited by HR)
-lisinopril stopped due to NOAH
-did not tolerate entresto or aldactone due to hyperkalemia and NOAH as outpatient
-no SGLT2i due to NOAH
-OP discussion regarding CHEMICAL PLANT OPERATOR-D: patient has been considering, but has not decided yet.
Abnormal troponin:
-acute non-ischemic myocardial injury in setting of acute illness with PNA with hypoxemia
-denies any CP
Parox AFib:
-stable in SR
-continue Eliquis 2.5mg bid
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
-stable, follow tele
CAD:
-stable without CP
CKD3b:
-follow creatinine: 1.9 may be new baseline
echo 07/15/22
Moderately reduced left ventricular systolic function. Left ventricular
�ejection fraction is 30-35%.
�Global hypokinesis.
�Stage II diastolic dysfunction suggestive of abnormal relaxation and increased
�filling pressures.
�Mild aortic stenosis. Mild aortic regurgitation.
�Enlarged right ventricular size. Reduced right ventricular systolic function.
�Moderate tricuspid regurgitation. Severely elevated PASP. Estimated pulmonary
�artery pressure of 79 mmHg, assuming a right atrial pressure of 15 mmHg.
�Mildly dilated aortic root (SOV 4.1 cm), and proximal ascending aorta (4.1 cm).
Physical Exam
Vital Signs/Labs
Vital Signs
Temp Pulse Resp BP Pulse Ox
97.5 F 59 17 139/69 95
07/19/23 07:00 07/19/23 07:21 07/19/23 07:00 07/19/23 07:21 07/19/23 07:00
07/18/23 07/19/23 07/20/23
06:59 06:59 06:59
Actual Weight 74.8 kg 75.024 kg
07/19/23 06:24
07/19/23 06:24
07/16/23
03:09
Tur-F-Fvybvvgcsgm Pept 9200
LAB Results
07/16/23 07/16/23 07/16/23
09:10 13:49 19:50
Troponin I 0.101 H* D 0.100 H* Cancelled
Physical Exam
Constitutional: No acute distress and Comfortable
EENT: Moist mucous membranes
Cardiovascular: Pedal edema is absent, JVD pressure is normal, Rhythm/rate is irregular and Pedal edema present
Respiratory: Respiratory effort normal and Lungs clear to auscul.
GI: Soft and Distention absent
Neuro/Psych: AO x 3
Data Reviewed
-
Date of Service: July 19, 2023
EKG: Other (Tele: sinus david 50s, PVC's)
Labs: Labs Reviewed by me
--- NOTE | 2023-07-19 09:21 | W.HF.CON ---
Heart Failure
- LV Function
Left ventricular function study result: LV Ejection fraction </= 35%
Ejection Fraction Percentage: 30-35
- ARNI
Patient already on ARNI: No
Heart Failure ARNI Contraindication: Acute Renal Failure, Hyperkalemia
- ACEI/ARB
Patient already on ACEI/ARB: No
Heart Failure ACEI/ARB Contraindication: Acute Renal Failure, Hyperkalemia
- Beta Vin
Patient already on Evidence Based Beta Vin: Yes
- Mineralocorticord Receptor Antagonist
Patient already on MRA: No
Heart Failure MRA Contraindication: Acute Renal Insufficiency, Hyperkalemia - serum >5
- SGLT-2 Inhibitor
Patient already on SGLT-2 Inhibitor: No
Heart Failure SGLT-2 Inhibitor Contraindication: Patient Refusal
- Afib Anticoagulation
Patient already on Anticoagulation for Afib: Yes
- NYHA CHF Classification
NYHA CHF Classification Level: Class III - Symptoms w/ min exertion, interferes w/ nml daily activity
- ACC/AHA Stage
ACC/AHA Stage: Stage C: Symptomatic Heart Failure
--- NOTE | 2023-07-19 12:00 | CM ---
Reviewed chart, patient progressing well in PT. Unsure as of yet if he will be able to wean from o2 or will need it at home.
Plan: Case management will continue to follow and assist with discharge planning. Patient would like to return home at discharge. Will watch for o2/VN needs.
--- NOTE | 2023-07-19 13:27 | W.PN.HOSP.TC ---
Today's Communication/Plan
-
DC planning
Assessment / Plan
Assessment / Plan
A/P:� Patient is an 87y M with PMH significant for A-Fib, CHF and HTN who presents to ED for evaluation of shaking chills, SOB and hypoxemia.
RLL Pneumonia
Acute Hypoxemic Respiratory Failure secondary to the above
�- Patient with rigors / chills at home and CXR with patchy R base infiltrate c/w pneumonia.
- Continued improvement clinical symptoms, improving oxygenation, normalized white.
- BCX neg
�- Day 4 of ab x-switch to oral cefuroxime and doxycycline for another 3 days
�- Continue O2 support .Wean as able.
- INFORMATION SYSTEMS CONSULTANT evdina noted - ok for regular diet
Bacteremia - 1/2 on adx showing GPC in cluster .Diptheroids noted ,a contaminant.
Acute on Chronic HFrEF
�- Suspect that this is largely decompensation secondary to cor pulmonale / primary pulm process / pneumonia as noted above.
�- Patient compliant with diuretic, salt restriction, daily weights, etc.
�- Has metolazone to take PRN for weight > 170 - and he never reaches that number.
�- Improved wt. Lasix switched to po
�- Treat underlying pneumonia as noted above.
�-�- Update Echo - last done 05/2022 with LVEF = 35-40%, moderate TR / pulmonary hypertension; ECHO on this admission shows EF slightly reduced to 30-35% and PASP is somewhat higher 72mmgHg
- Cards following
Abnormal Troponin
�- Suspect this is secondary to CHF / CKD and not an acute process.
�- EKG with chronic LBBB.
�- Continue to trend and consider Cardio evaluation if any new symptoms / changes in troponin.
Paroxysmal Atrial Fibrillation
�- Stable.� Continue usual med regimen including Eliquis for stroke risk reduction.
CKD III-IV
�- Stable.� SCr = 1.8 today.� Last value here was 1.3; however, recent outpatient SCr = 2.03 (07/08).
�- Follow for changes with diuresis / volume status.
Mild thrombocytopenia - suspect may be related to infection -follow
Chronic normocytic anemia-hemoglobin at his baseline. Check iron stores
DVT Prophylaxis:� On Eliquis
Code Status:� DNR
Eval for home O2
DC planning
Anticipated Discharge: Today
Subjective/Interval History
-
Date of Service: July 19, 2023
Feeling improved. Currently on 1 L of oxygen. Denies shortness of breath at rest. No chest pain.
No fever or chills.
Objective Data
-
Labs:
Laboratory Results
07/19/23
06:24
WBC 7.8
Hgb 9.9 L
Hct 29.1 L
Plt Count 118 L
Sodium 136
Potassium 4.1
Chloride 100
Carbon Dioxide 24
BUN 64 H
Creatinine 1.9 H
Glucose 90
Calcium 9.3
Vital Signs:
Vital Signs
Temp Pulse Resp BP Pulse Ox
98.0 F 51 18 116/51 96
07/19/23 11:34 07/19/23 11:34 07/19/23 11:34 07/19/23 11:34 07/19/23 11:34
I&O
07/18/23 07/19/23 07/20/23
06:59 06:59 06:59
Intake Total 940 / 940 690 / 690
Output Total 850 / 850 650 / 650 1050 / 1050
Balance 90 / 90 40 / 40 -1050 / -1050
Review of Systems
-
EENT: Denies Sore Throat
Respiratory: Denies Cough
Abdomen/GI: Denies Abdominal Pain, Nausea or Vomiting
Neuro: Denies Dizzy
Physical Exam
-
General: No Apparent Distress
HEENT: Moist Mucous Membranes
Respiratory: Clear to Auscultation
Cardiac: Regular Rhythm
GI: Soft, Nontender, Nondistended and Normal Bowel Sounds
Neuro: AO x 3
Data Reviewed
-
Labs: Labs Reviewed by me
--- NOTE | 2023-07-19 17:01 | RESPNOTE ---
Addendum entered by Kaykay Cage, RT 07/19/23 17:37:
Home O2 assesment completed.
at rest on RA SpO2 95%.
patient ambulated about 200 feet with RW and supervision on RA SPO2 91%.
patient denies SOB and returned to sit up in bed on RA.
Original Note:
Off O2 at this time for Home O2 assessment.
[2023-07-19] MEDS: LIPITOR 10 MG PO (17:18)
[2023-07-19] MEDS: VIBRAMYCIN 100 MG PO (20:14)
[2023-07-19] MEDS: CEFTIN 250 MG PO (20:15)
[2023-07-20 03:41] VITALS: BP 105/49
[2023-07-20 08:12] VITALS: BP 128/65
[2023-07-20] MEDS: MUCINEX 600 MG PO (09:11)
[2023-07-20] MEDS: LEXAPRO 5 MG PO (09:11)
[2023-07-20] MEDS: VIBRAMYCIN 100 MG PO (09:11)
[2023-07-20] MEDS: ELIQUIS 2.5 MG PO (09:12)
[2023-07-20] MEDS: PROSCAR 5 MG PO (09:12)
[2023-07-20] MEDS: ZYLOPRIM 100 MG PO (09:12)
[2023-07-20] MEDS: COREG 3.125 MG PO (09:12)
[2023-07-20] MEDS: CEFTIN 250 MG PO (09:12)
[2023-07-20] MEDS: LASIX 80 MG PO (09:19)
[2023-07-20 10:56] VITALS: BP 120/72; PULSE 52; O2SAT 96
[2023-07-20 11:26] VITALS: BP 111/50
--- NOTE | 2023-07-20 14:35 | W.PN.HOSP.TC ---
Today's Communication/Plan
-
DC
Assessment / Plan
Assessment / Plan
A/P:� Patient is an 87y M with PMH significant for A-Fib, CHF and HTN who presents to ED for evaluation of shaking chills, SOB and hypoxemia.
RLL Pneumonia
Acute Hypoxemic Respiratory Failure secondary to the above
�- Patient with rigors / chills at home and CXR with patchy R base infiltrate c/w pneumonia.
- Continued improvement clinical symptoms, normalized oxygenation, normalized white.
- BCX neg
�- Day 5 of ab x-switch to oral cefuroxime and doxycycline for another 2 days
�- TELEMARKETING SALES REPRESENTATIVE sonia noted - ok for regular diet
Bacteremia - 1/2 on adx showing GPC in cluster .Diptheroids noted ,a contaminant.
Acute on Chronic HFrEF
�- Suspect that this is largely decompensation secondary to cor pulmonale / primary pulm process / pneumonia as noted above.
�- Patient compliant with diuretic, salt restriction, daily weights, etc.
�- Has metolazone to take PRN for weight > 170 - and he never reaches that number.
�- Improved wt. Lasix switched to po
�- Treat underlying pneumonia as noted above.
�-�- Update Echo - last done 05/2022 with LVEF = 35-40%, moderate TR / pulmonary hypertension; ECHO on this admission shows EF slightly reduced to 30-35% and PASP is somewhat higher 72mmgHg
- Cards following
Abnormal Troponin
�- Suspect this is secondary to CHF / CKD and not an acute process.
�- EKG with chronic LBBB.
�- Continue to trend and consider Cardio evaluation if any new symptoms / changes in troponin.
Paroxysmal Atrial Fibrillation
�- Stable.� Continue usual med regimen including Eliquis for stroke risk reduction.
CKD III-IV
�- Stable.� SCr = 1.8 .� Last value here was 1.3; however, recent outpatient SCr = 2.03 (07/08).
�
Mild thrombocytopenia - suspect may be related to infection -improved
Chronic normocytic anemia-hemoglobin at his baseline. No iron def on iron studies
DVT Prophylaxis:� On Eliquis
Code Status:� DNR
Medical stable for discharge home today.
More than 30 minutes spent in discharge including
Final examination of the patient
Summarizing hospital stay
Instructions for continuing care to all relevant caregivers
Preparation of discharge records, prescriptions, and referral forms
Total time spent (in minutes): 32
Anticipated Discharge: Today
Subjective/Interval History
-
Date of Service: July 20, 2023
Feeling much improved. Off of oxygen. Denies shortness of breath. No fever or chills. No chest pain.
Objective Data
-
Vital Signs:
Vital Signs
Temp Pulse Resp BP Pulse Ox
97.1 F 52 16 111/50 97
07/20/23 11:26 07/20/23 11:26 07/20/23 11:26 07/20/23 11:26 07/20/23 11:26
I&O
07/19/23 07/20/23 07/21/23
06:59 06:59 06:59
Intake Total 690 / 690 1200 / 1200
Output Total 650 / 650 2250 / 2250
Balance 40 / 40 -1050 / -1050
Review of Systems
-
EENT: Denies Sore Throat
Respiratory: Denies Cough
Neuro: Denies Dizzy
Physical Exam
-
General: No Apparent Distress
HEENT: Moist Mucous Membranes
Respiratory: Crackles (rt lower zone) and Non Labored Respirations; Negative Wheezes or Accessory Resp Muscle Use
Cardiac: Regular Rhythm and S1/S2; Negative Tachycardic
Neuro: AO x 3
Psych: Calm; Negative Confused
--- NOTE | 2023-07-20 14:43 | W.DS.TRANS ---
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
-
Discharge Instructions:
Sleep Apnea Risk Low
Discharge Diagnosis/Procedures RLL pneumonia
Acute hypoxic respiratory failure
Acute on chronic heart failure with reduced EF
Diet 2 Gram Sodium
Activity As tolerated
Driving Restrictions As prior to admission
Others Tests CXR 2 view in 3-4 weeks -arrange through your
PCP
Specialty Instructions Weigh Daily
Instructions: *CBC Heart Failure Instructions
Stand-Alone Forms:
Changes to Home Medications: Yes
Discharge Medications:
DC Medications w/original date entered in [facility]
allopurinol 100 mg tablet 100 mg PO DAILY Gout 07/13/14
finasteride 5 mg tablet 5 mg PO DAILY Urinary issue 07/13/14
simvastatin 20 mg tablet 20 mg PO QPM High cholesterol 07/13/14
lisinopril 20 mg tablet 10 mg PO DAILY Blood pressure 04/07/16
escitalopram oxalate 10 mg tablet 5 mg PO DAILY Depression 12/07/17
acetaminophen 325 mg tablet (Tylenol) 650 mg PO Q4HPRN PRN mild pain 06/10/22
vitamins A,C,N-lmcn-uzffwo 4,296 mcg-226 mg-90 mg capsule (PreserVision AREDS) 1 cap PO BID Supplement 06/17/22
carvedilol 3.125 mg tablet 3.125 mg PO BID #60 tabs 08/12/22
apixaban 2.5 mg tablet (Eliquis) 2.5 mg PO BID Blood Clot Prevention/Tx 07/16/23
cefuroxime axetil 250 mg tablet 250 mg PO BID #5 tabs 07/20/23
doxycycline hyclate 100 mg capsule 100 mg PO Q12 #5 caps 07/20/23
furosemide 40 mg tablet 120 mg PO MOWEFR #32 tabs 07/20/23
furosemide 80 mg tablet 80 mg PO SUTUTHSA #16 tabs 07/20/23
Home Medication Changes
New medication - Cefuroxime, doxycycline
Change in mediation - increased dose of lasix
Pending Results: No
[2023-07-20 15:28] VITALS: BP 110/52
== END 2023-07-20 16:25 | disposition home or self-care (01) | DRG 193 ==
LOC: 3 WEST ACU 05:39
PROVIDERS: ADMITTING PHYSICIAN Hospitalist; ATTENDING PHYSICIAN Internal Medicine; CONSULT PHYSICIAN Internal Medicine; EMERGENCY PHYSICIAN Student in an Organized Health Care Education/Training Program; FAMILY PHYSICIAN Family Medicine
DX: J18.9 Pneumonia, unspecified organism (principal); I50.23 Acute on chronic systolic (congestive) heart failure; J96.01 Acute respiratory failure with hypoxia; I13.0 Hypertensive heart and chronic kidney disease with heart failure and stage 1 through stage 4 chronic kidney disease, or unspecified chronic kidney disease; N18.4 Chronic kidney disease, stage 4 (severe); I5A Non-ischemic myocardial injury (non-traumatic); Z66 Do not resuscitate; I48.0 Paroxysmal atrial fibrillation; I44.7 Left bundle-branch block, unspecified; I25.10 Atherosclerotic heart disease of native coronary artery without angina pectoris; Z11.52 Encounter for screening for COVID-19
CPT/HCPCS: 71045; 80048; 80053; 82728; 83540; 83550; 83880; 84484; 85025; 85027; 87040; 87205; 87502; 87811; 92610; 93005; 93306; 94660; 96365; 96375; 97116; 97163; 97167; 97530; 97535; 99285

== ENCOUNTER → 2023-08-03 10:26 | Outpatient (REF) | payer MEDICARE, SELFPAY | LOC: RAD 10:26 | PROVIDERS: ATTENDING PHYSICIAN Physician Assistant | DX: J18.9 Pneumonia, unspecified organism (principal) | CPT/HCPCS: 71046 ==

== ENCOUNTER 2023-08-18 19:06 | Emergency (ER) | payer MEDICARE, SELFPAY ==
[2023-08-18 19:09] VITALS: BP 127/66
[2023-08-18] MEDS: TRANEXAMIC ACID 250 MG TOPICAL (20:10)
--- NOTE | 2023-08-18 21:09 | ED.GENMED ---
History of Present Illness
General
Chief Complaint: Oral/Mouth Problem
Source: patient, significant other and family
Time Seen by Provider: 08/18/23 19:19
Travel History
Have you had any contact with someone who has COVID-19?: No
Do you have any symptoms of coronavirus? Fever > 100 degrees, chills, cough, shortness of breath, sore throat, loss of taste or smell, muscle aches, or headache?: No
History of Present Illness
History of Present Illness:
87-year-old male who presents with bleeding from his gums. The patient had a clot removal performed today. He has had persistent oozing of blood. The patient is on Eliquis. He denies any other symptoms.
Past History
Past History
ED Past Medical History: Arrthythmia (Atrial fibrillation), HTN, Hypercholesterolemia and Other (Renal insufficiency)
ED Past Surgical History: None
Patient has exhibited threatening behavior?: No
PSI?: No
Social History
Tobacco: Non-smoker
Alcohol: None
Drug: None
Personal:
Living: with family
Phy Exam
Physical Exam
Physical Exam:
CONSTITUTIONAL Vital signs reviewed, Patient alert and oriented to person, place and time. Well-appearing
HEAD atraumatic, normocephalic.
EYES eyelids normal to inspection, Extraocular muscles intact, Conjunctiva normal, Sclera normal.
ENT bleeding area at base of #19 posteriorly.
NECK normal range of motion, Trachea midline, no jugular venous distention.
RESP no respiratory distress
BACK No obvious deformities
UPPER EXTREMITY Gross Range of motion normal, gross motor strength normal
LOWER EXTREMITY Gross range of motion normal, Gross motor strength normal
NEURO Speech normal, No focal motor deficits include, [place] coma scale 15, Memory normal, Cranial Nerves intact to screening exam.
SKIN Skin warm, dry, and normal in color.
PSYCHIATRIC Patient oriented to person place and time, Normal affect.
Course
Orders/Labs/Results
Orders:
Orders
08/18/23 20:02
Tranexamic Acid 1,000 mg .ROUTE .STK-MED ONE
08/18/23 20:03
Tranexamic Acid 250 mg TOPICAL NOW STA
Vital Signs
Initial and Last Documented VS:
Initial Vital Signs
Temp Pulse Resp BP Pulse Ox
97.3 F 62 20 127/66 92
08/18/23 19:09 08/18/23 19:09 08/18/23 19:09 08/18/23 19:09 08/18/23 19:09
Last Documented Vital Signs
Temp Pulse Resp BP Pulse Ox
97.3 F 62 20 127/66 92
08/18/23 19:09 08/18/23 19:09 08/18/23 19:09 08/18/23 19:09 08/18/23 19:09
MDM/Problems Addressed
MDM/Problems Addressed:
. Therapeutic coagulopathy, bleeding gums
*Pulse Oximetry
Patient hypoxic: no
*Critical Care Note
Total Time (30-74mins, 75-104mins- exclusive of procedures): Not Applicable
Data Reviewed
Source: patient and family
Prescriptions/Medications Considered But Not Given:
Considered epinephrine but patient had sufficient response with topical TXA
Patient Management
Escalation/DeEscalation of care consider admission/obs:
Patient given topical TXA on a pledget. Tolerated well and bleeding has subsided and is dry on reevaluation. I advised soft foods and chewing on the right side of mouth once he does go back to solid foods. Outpatient follow-up recommended
ED Attending Note
-
Portions of this chart may have been created with voice recognition software.� Occasional wrong word or��sound alike� substitutions may have occurred due to the inherent limitations of voice recognition software.
Discharge Plan
Departure
Patient Disposition: Home (Routine Discharge)
Date of Disposition: 08/18/23
Time of Disposition: 21:10
Patient with high blood pressure during this ER visit?: No
Discharge Problem:
bleeding oral lesion
Prescriptions:
No Action
allopurinol 100 MG tablet
100 mg PO DAILY
simvastatin 20 MG tablet
20 mg PO QPM
finasteride 5 MG tablet
5 mg PO DAILY
lisinopril 20 MG tablet
10 mg PO DAILY
escitalopram oxalate 10 MG tablet
5 mg PO DAILY
acetaminophen [Tylenol] 325 mg Tablet
650 mg PO Q4HPRN PRN (Reason: mild pain)
PreserVision AREDS 4,296 mcg-226 mg-90 mg Capsule
1 cap PO BID
carvedilol 3.125 mg Tablet
3.125 mg PO BID Qty: 60 0RF
Eliquis 2.5 mg Tablet
2.5 mg PO BID
furosemide 40 mg Tablet
120 mg PO MOWEFR Qty: 32 0RF
cefuroxime axetil 250 mg Tablet
250 mg PO BID Qty: 5 0RF
doxycycline hyclate 100 mg Capsule
100 mg PO Q12 Qty: 5 0RF
furosemide 80 mg Tablet
80 mg PO SUTUTHSA Qty: 16 0RF
Referrals:
Boris Espana MD [Family Provider] -
Activity Restrictions/Additional Instructions:
Bleeding oral lesion
Please keep your foods soft over the next 48 hours as discussed. If you do start to lose blood again, compress with given pledgets. If bleeding persist after 30 minutes please return to the emergency department.
Interventions
Interventions:
*Risk Screen - Suicide Last Done: 08/18/23 19:09
*General Assessment Last Done: 08/18/23 19:09
*Neglect/Abuse Screening Last Done: 08/18/23 19:09
Discharge Date and Time
Print Language: BURUNDIAN
[2023-08-18 21:28] VITALS: BP 125/60
== END 2023-08-18 21:33 | disposition home or self-care (01) ==
LOC: EMR 19:06
PROVIDERS: EMERGENCY PHYSICIAN Emergency Medicine; FAMILY PHYSICIAN Family Medicine
DX: K13.70 Unspecified lesions of oral mucosa (principal); Z79.01 Long term (current) use of anticoagulants
CPT/HCPCS: 99283

== ENCOUNTER 2023-08-20 10:08 | Emergency (ER) | payer MEDICARE, SELFPAY ==
[2023-08-20 10:10] VITALS: BP 108/52
[2023-08-20 10:20] VITALS: BMI 23.7
--- NOTE | 2023-08-20 10:40 | ED.GENMED ---
Addendum entered and electronically signed by David Bowser PA-C 08/22/23 09:19:
Patient has positive blood culture of the aerobic bottle, gram-positive cocci in chains. Active patient's who states patient has not had any fevers and his blood pressure has been his usual. Patient did have a leukocytosis with a leftward
shift during his visit. Recommended given his lab work combined with his age that patient come back to the emergency department to be reevaluated. drive patient to the ER to be evaluated.
Original Note:
History of Present Illness
General
Chief Complaint: Oral/Mouth Problem
Source: patient and spouse
Exam Limitations: none
Time Seen by Provider: 08/20/23 10:24
Nursing documentation reviewed up to this point in time: agreed with
Travel History
Have you had any contact with someone who has COVID-19?: No
Do you have any symptoms of coronavirus? Fever > 100 degrees, chills, cough, shortness of breath, sore throat, loss of taste or smell, muscle aches, or headache?: No
History of Present Illness
History of Present Illness:
87-year-old male presents emergency department due to bleeding from his gums. He had a dental procedure done 2 days ago and was seen in the ED due to bleeding. It began oozing again this am.
Past History
Past History
ED Past Medical History: Arrthythmia (Atrial fibrillation), HTN, Hypercholesterolemia and Other (Renal insufficiency)
ED Past Surgical History: None
Patient has exhibited threatening behavior?: No
PSI?: No
Social History
Tobacco: Non-smoker
Alcohol: None
Drug: None
Personal:
Living: with family
Review of Systems
Review of Systems
Allergies reviewed?: Yes
All Other Systems: Not applicable
Constitutional: Reports no symptoms
EENT: Reports other (bleeding from left lower gums)
Respiratory: Reports cough and trouble breathing
Cardiac: Reports no symptoms
Hematologic/Lymphatic: Reports bleeding
Phy Exam
Physical Exam
Physical Exam:
Physical Exam
General: no apparent distress, not acutely ill
Neck: supple. no meningeal signs. normal posterior pharynx
Heart: equal radial pulses.
lungs: Bilateral rhonchi
X-ray
HEENT: Pupils equal round reactive to light, EOMI, pale oral mucosa, bleeding at base of tooth #19
Lungs: no acute respiratory distress.
Abdomen: normal bowel sounds. not tender. no CVAT
Neuro: alert and oriented. no focal neurological deficits cranial nerves II through XII intact
Skin: no rash
Psychiatric: well kept. interactive and cooperative
Extremities: no edema. no calf tenderness. negative homans. good distal pulses
Course
Orders/Labs/Results
Orders:
Orders
08/20/23 10:43
IV Insert/Care/Rem.- Treatment PRN
08/20/23 10:55
Case Management Consult ONCE
Case Management Consult: VN/Home Care
08/20/23 11:13
VINI Polyspecific GEL Urgent
BBK Wristband Number:
Type+Screen Urgent
Basic Metabolic Panel Urgent
Complete Blood Count/With Diff Urgent
08/20/23 12:38
Tranexamic Acid 1,000 mg .ROUTE .STK-MED ONE
08/20/23 14:19
CR Chest - 2 Views Urgent
Comment:
Reason For Exam: short of breath
Abnormal Lab Results
08/20/23
11:13
WBC 15.2 H 10^3/uL
(4.8-10.8)
RBC 3.24 L 10^6/uL
(4.70-6.10)
Hgb 10.3 L g/dL
(13.0-18.0)
Hct 30.0 L %
(39.0-52.0)
MCH 31.8 H pg
(27.0-31.0)
RDW 17.1 H %
(11.5-14.5)
Abs Immat Gran (auto) 0.1 H 10^3/uL
(0-0.05)
Absolute Neuts (auto) 13.5 H 10^3/uL
(1.4-6.5)
Absolute Lymphs (auto) 0.7 L 10^3/uL
(1.2-3.4)
Absolute Monos (auto) 0.8 H 10^3/uL
(0.1-0.6)
Neutrophils % 89.1 H %
(42.2-75.2)
Lymphocytes % 4.5 L %
(20.5-51.1)
BUN 92 H mg/dl
(9-20)
Creatinine 1.8 H mg/dL
(0.7-1.3)
Glucose 141 H mg/dl
(70-99)
Antibody Screen Positive A
(Negative)
Direct Antiglob Test Positive A
(Negative)
08/20/23 11:13
08/20/23 11:13
Vital Signs
Initial and Last Documented VS:
Initial Vital Signs
Pulse Resp BP Pulse Ox
56 18 108/52 94
08/20/23 10:10 08/20/23 10:10 08/20/23 10:10 08/20/23 10:10
Last Documented Vital Signs
Pulse Resp BP Pulse Ox
56 18 117/69 95
08/20/23 10:10 08/20/23 10:10 08/20/23 11:03 08/20/23 11:30
Procedures
Other
Indication for procedure:: Dental bleeding
Procedure completed by: Dr. Avendano
Consent form signed: No
Additional Procedure:
TXA applied along with an area of cautery to control dental bleeding
MDM/Problems Addressed
Differential Diagnosis Includes:
Dental bleeding, pneumonia
MDM/Problems Addressed:
87-year-old male with recurrent pneumonia and dental bleeding controlled. Admit to hospitalist.
Chronic conditions affecting care: Arrhythmia
Acute Exacerbation and/or Progression of Chronic Illness: Arrhythmia
*Radiology
Radiology exam reviewed: preliminary read by ED provider (Right-sided pneumonia)
*Pulse Oximetry
Patient hypoxic: no
*EKG
Interpreted by ED Provider?: NA
*Polystyrene Bead Molder Interpretation
Rate: Polystyrene Bead Molder- N/A
*Critical Care Note
Total Time (30-74mins, 75-104mins- exclusive of procedures): Not Applicable
Patient Management
Social determinants of health affecting care: Living situation
Discussion with other providers: Hospitalist
Escalation/DeEscalation of care consider admission/obs:
admit indicated
ED Attending Note
-
Portions of this chart may have been created with voice recognition software.� Occasional wrong word or��sound alike� substitutions may have occurred due to the inherent limitations of voice recognition software.
Discharge Plan
Departure
Patient Disposition: Admit
Date of Disposition: 08/20/23
Time of Disposition: 14:55
Admit to: Telemetry
Presentation/result/management discussed w/ accepting MD/DO: Hospitalist
Patient with high blood pressure during this ER visit?: Yes
Condition: Fair
Discharge Problem:
Pneumonia, Surgical wound hemorrhage after dental procedure
Prescriptions:
No Action
allopurinol 100 MG tablet
100 mg PO DAILY
simvastatin 20 MG tablet
20 mg PO QPM
finasteride 5 MG tablet
5 mg PO DAILY
lisinopril 20 MG tablet
10 mg PO DAILY
escitalopram oxalate 10 MG tablet
5 mg PO DAILY
acetaminophen [Tylenol] 325 mg Tablet
650 mg PO Q4HPRN PRN (Reason: mild pain)
PreserVision AREDS 4,296 mcg-226 mg-90 mg Capsule
1 cap PO BID
carvedilol 3.125 mg Tablet
3.125 mg PO BID Qty: 60 0RF
Eliquis 2.5 mg Tablet
2.5 mg PO BID
furosemide 40 mg Tablet
120 mg PO MOWEFR Qty: 32 0RF
cefuroxime axetil 250 mg Tablet
250 mg PO BID Qty: 5 0RF
doxycycline hyclate 100 mg Capsule
100 mg PO Q12 Qty: 5 0RF
furosemide 80 mg Tablet
80 mg PO SUTUTHSA Qty: 16 0RF
Referrals:
Boris Espana MD [Family Provider] -
Interventions
Interventions:
*Risk Screen - Suicide Last Done: 08/20/23 10:20
*General Assessment Last Done: 08/20/23 10:20
*Neglect/Abuse Screening Last Done: 08/20/23 10:20
ED- Fall Risk Assessment Last Done: 08/20/23 10:21
*ED COVID-19 Vaccine History Last Done: 08/20/23 10:10
Discharge Date and Time
Print Language: JAPANESE
[2023-08-20 11:03] VITALS: BP 117/69
[2023-08-20 11:25] LABS: % Basophils 0.3 % (0-2); % Eosinophils 0.5 % (0-6); % Immature Granulocytes 0.5 % (0-0.5); % Lymphocytes 4.5 % (20.5-51.1); % Monocytes 5.1 % (1.7-9.3); % Neutrophils 89.1 % (42.2-75.2); Absolute Basophils 0.1 10^3/uL (0-0.2); Absolute Eosinophils 0.1 10^3/uL (0-0.7); Absolute Immature Granulocytes 0.1 10^3/uL (0-0.05); Absolute Lymphocytes 0.7 10^3/uL (1.2-3.4); Absolute Monocytes 0.8 10^3/uL (0.1-0.6); Absolute Neutrophils 13.5 10^3/uL (1.4-6.5); Hemoglobin 10.3 g/dL (13.0-18.0); Mean Corp Hgb Conc. 34.3 g/dL (33.0-37.0); Mean Corpuscular Hgb 31.8 pg (27.0-31.0); Mean Corpuscular Volume 92.6 fL (80.0-94.0); Mean Platelet Volume 9.8 fL (7.4-10.4); Nucleated Red Blood Cells % 0 % (-); Platelet Count 148 10^3/uL (130-400); Red Blood Cell Count 3.24 10^6/uL (4.70-6.10); Red Cell Dist. Width 17.1 % (11.5-14.5); White Blood Cell Count 15.2 10^3/uL (4.8-10.8)
--- NOTE | 2023-08-20 11:40 | CM ---
CM reviewed medical records. CM was consulted to discuss home care services. As per , patient was known to [facility]. Patient felt he was not benefiting from their services and fired them. is stating that patient is increasingly more
difficult to care for and she would like resources. Patient's is agreeable to VN referral and referral for services to [facility]. Patient's was also given written information on private pay care givers.
CM updated [facility] police liaison officer was updated with referral. CM sent request for services via email to [facility].
[2023-08-20 11:55] LABS: Blood Urea Nitrogen 92 mg/dl (9-20); Calcium 9.1 mg/dl (8.4-10.2); Carbon Dioxide 22 mmol/L (22-30); Chloride 101 mmol/L (98-107); Estimated Creatinine Clearance 28 ml/min; Glucose 141 mg/dl (70-99); Potassium 3.5 mmol/L (3.5-5.1); Sodium 135 mmol/L (135-145); eGFR 35.76
[2023-08-20 13:00] VITALS: BP 119/55
[2023-08-20 14:00] VITALS: BP 127/74
[2023-08-20 15:21] VITALS: BP 141/75
--- NOTE | 2023-08-20 15:30 | ED.GENMED ---
History of Present Illness
General
Chief Complaint: Oral/Mouth Problem
Time Seen by Provider: 08/20/23 10:24
Travel History
Have you had any contact with someone who has COVID-19?: No
Do you have any symptoms of coronavirus? Fever > 100 degrees, chills, cough, shortness of breath, sore throat, loss of taste or smell, muscle aches, or headache?: No
Past History
Past History
ED Past Medical History: Arrthythmia (Atrial fibrillation), HTN, Hypercholesterolemia and Other (Renal insufficiency)
ED Past Surgical History: None
Patient has exhibited threatening behavior?: No
PSI?: No
Social History
Tobacco: Non-smoker
Alcohol: None
Drug: None
Personal:
Living: with family
Course
Orders/Labs/Results
Orders:
Orders
08/20/23 10:43
IV Insert/Care/Rem.- Treatment PRN
08/20/23 10:55
Case Management Consult ONCE
Case Management Consult: VN/Home Care
08/20/23 11:13
VINI Polyspecific GEL Urgent
BBK Wristband Number:
Type+Screen Urgent
Basic Metabolic Panel Urgent
Complete Blood Count/With Diff Urgent
08/20/23 12:38
Tranexamic Acid 1,000 mg .ROUTE .STK-MED ONE
08/20/23 14:19
CR Chest - 2 Views Urgent
Comment:
Reason For Exam: short of breath
08/20/23 14:57
Cefepime HCl [Maxipime] 2,000 mg IV NOW STA
Vancomycin [Vancocin] 2,000 mg 0.9% Sodium Chloride 500 ml [Nss] 500 ml IV NOW
08/20/23 15:00
Blood Culture Q30M
KAY Source: Blood/Venous
Specimen Description:
08/20/23 15:25
Vancomycin [Vancocin] 1,500 mg 0.9% Sodium Chloride [Nss] 20 ml 0.9% Sodium Chloride 250 ml [Nss] 250 ml IV NOW
08/20/23 15:30
Blood Culture Q30M
KAY Source: Blood/Venous
Specimen Description:
Abnormal Lab Results
08/20/23
11:13
WBC 15.2 H 10^3/uL
(4.8-10.8)
RBC 3.24 L 10^6/uL
(4.70-6.10)
Hgb 10.3 L g/dL
(13.0-18.0)
Hct 30.0 L %
(39.0-52.0)
MCH 31.8 H pg
(27.0-31.0)
RDW 17.1 H %
(11.5-14.5)
Abs Immat Gran (auto) 0.1 H 10^3/uL
(0-0.05)
Absolute Neuts (auto) 13.5 H 10^3/uL
(1.4-6.5)
Absolute Lymphs (auto) 0.7 L 10^3/uL
(1.2-3.4)
Absolute Monos (auto) 0.8 H 10^3/uL
(0.1-0.6)
Neutrophils % 89.1 H %
(42.2-75.2)
Lymphocytes % 4.5 L %
(20.5-51.1)
BUN 92 H mg/dl
(9-20)
Creatinine 1.8 H mg/dL
(0.7-1.3)
Glucose 141 H mg/dl
(70-99)
Antibody Screen Positive A
(Negative)
Direct Antiglob Test Positive A
(Negative)
VINI, IgG Specific 1+ H
(Negative)
08/20/23 11:13
08/20/23 11:13
Vital Signs
Initial and Last Documented VS:
Initial Vital Signs
Pulse Resp BP Pulse Ox
56 18 108/52 94
08/20/23 10:10 08/20/23 10:10 08/20/23 10:10 08/20/23 10:10
Last Documented Vital Signs
Temp Pulse Resp BP Pulse Ox
97.6 F 56 18 117/69 95
08/20/23 15:07 08/20/23 10:10 08/20/23 10:10 08/20/23 11:03 08/20/23 11:30
ED Attending Note
-
Portions of this chart may have been created with voice recognition software.� Occasional wrong word or��sound alike� substitutions may have occurred due to the inherent limitations of voice recognition software.
Discharge Plan
Departure
Patient Disposition: Home (Routine Discharge)
Date of Disposition: 08/20/23
Time of Disposition: 14:55
Patient with high blood pressure during this ER visit?: Yes
Condition: Fair
Discharge Problem:
Surgical wound hemorrhage after dental procedure, Cough
Instructions: Cough, Adult (DC)
Prescriptions:
New
albuterol sulfate 90 mcg/actuation HFA aerosol inhaler
2 puff inhalation Q6H PRN (Reason: shortness of breath or wheezing) Qty: 6.7 0RF
No Action
allopurinol 100 MG tablet
100 mg PO NOON
simvastatin 20 MG tablet
20 mg PO HS
finasteride 5 MG tablet
5 mg PO QPM
PreserVision AREDS 4,296 mcg-226 mg-90 mg Capsule
1 cap PO BID
Patient Comments:
08/20/2023, per spouse, pt. temporarily stopped taking because they thought it was causing symtpoms.
carvedilol 3.125 mg Tablet
3.125 mg PO BID Qty: 60 0RF
Eliquis 2.5 mg Tablet
2.5 mg PO BID
furosemide 40 mg Tablet
80 mg PO SUTUTHSA@0800
cetirizine [Zyrtec] 10 mg Tablet
10 mg PO DAILY PRN (Reason: allergies)
Patient Comments:
08/20/2023, per spouse, pt. temporarily stopped taking because they thought it was causing symtpoms.
metolazone 5 mg Tablet
5 mg PO DAILY PRN (Reason: edema)
fluticasone propionate [Flonase] 50 mcg/actuation [place],Suspension
2 spray INTRANASAL DAILY PRN (Reason: allergies)
Patient Comments:
08/20/2023, per spouse, pt. temporarily stopped taking because they thought it was causing symtpoms.
escitalopram oxalate 5 mg Tablet
15 mg PO NOON
furosemide 40 mg tablet
120 mg PO MOWEFR@0800
Referrals:
Boris Espana MD [Family Provider] -
Interventions
Interventions:
*Risk Screen - Suicide Last Done: 08/20/23 10:20
*General Assessment Last Done: 08/20/23 10:20
*Neglect/Abuse Screening Last Done: 08/20/23 10:20
ED- Fall Risk Assessment Last Done: 08/20/23 10:21
*ED COVID-19 Vaccine History Last Done: 08/20/23 10:10
Discharge Date and Time
Print Language: BHUTANESE
[2023-08-20 16:00] VITALS: BP 133/72
--- NOTE | 2023-08-20 16:31 | VNURNOTE ---
[facility] referral completed in [facility] after review of chart.
Call to patient's and message left to review plan. No return call.
== END 2023-08-20 16:22 | disposition home or self-care (01) ==
LOC: EMR 10:08
PROVIDERS: EMERGENCY PHYSICIAN Emergency Medicine; FAMILY PHYSICIAN Family Medicine
DX: J13 Pneumonia due to Streptococcus pneumoniae (principal); K06.8 Other specified disorders of gingiva and edentulous alveolar ridge; I11.0 Hypertensive heart disease with heart failure; I50.9 Heart failure, unspecified; E78.00 Pure hypercholesterolemia, unspecified; I48.91 Unspecified atrial fibrillation; N28.9 Disorder of kidney and ureter, unspecified; M19.90 Unspecified osteoarthritis, unspecified site; M10.9 Gout, unspecified; Z96.653 Presence of artificial knee joint, bilateral; Z98.890 Other specified postprocedural states; Z79.01 Long term (current) use of anticoagulants
CPT/HCPCS: 99284; 71046; 80048; 85025; 86850; 86860; 86870; 86880; 86900; 86901; 86905; 87040; 87077; 87205

== ENCOUNTER 2023-08-22 13:49 | Inpatient (IN) | payer MEDICARE, SELFPAY ==
[2023-08-22 10:21] VITALS: BP 114/54
--- NOTE | 2023-08-22 10:48 | ED.GENMED ---
History of Present Illness
General
Chief Complaint: Abnormal Lab Value
Source: patient and spouse
Exam Limitations: none
Time Seen by Provider: 08/22/23 10:36
Travel History
Have you had any contact with someone who has COVID-19?: No
Do you have any symptoms of coronavirus? Fever > 100 degrees, chills, cough, shortness of breath, sore throat, loss of taste or smell, muscle aches, or headache?: No
History of Present Illness
History of Present Illness:
87-year-old male call back for a positive strep blood culture. Patient was here 424 with bleeding gums after a dental procedure. He had some gum removed behind the left lower molar. Patient was discharged that day. Patient returned 426 with
recurrent bleeding. At that time there was some concerns of a pneumonia and initial x-ray was apparently read as pneumonia. Patient was going to be admitted for this. However that evening apparently the x-ray was read as negative patient deemed
stable for discharge. Initially the 24-hour blood culture was negative however today's blood culture is positive and patient was asked to return. He does not have any fever or chills. He has some increasing shortness of breath although this has
been an ongoing issue. Has not had recurrent bleeding. Weak per the
Past History
Past History
ED Past Medical History: Arrthythmia (Atrial fibrillation), HTN, Hypercholesterolemia and Other (Renal insufficiency)
ED Past Surgical History: None
Patient has exhibited threatening behavior?: No
PSI?: No
Social History
Tobacco: Non-smoker
Alcohol: None
Drug: None
Personal:
Living: with family
Review of Systems
Review of Systems
All Other Systems: Not applicable
Constitutional: Reports fatigue; Denies fever or chills
Respiratory: Reports cough and trouble breathing
Cardiac: Reports no symptoms
Phy Exam
Physical Exam
Physical Exam:
GENERAL: Alert and oriented in no apparent distress. Elderly and frail
EYE: Orbits normal.
NECK: Supple, no significant adenopathy.
ENT: Pharynx without erythema. Well appearing gum.
CARDIAC: Regular rate and rhythm with mild midsystolic murmur
LUNGS: No respiratory distress abdomen rest but mild rhonchi greater in the right base
ABDOMEN: Soft, without focal tenderness or distention
NEUROLOGICAL: Alert and oriented , grossly non-focal
SKIN: Warm and dry, no rash or lesion, no discoloration, skin intact.
MUSCULOSKELETAL: No edema,no deformity.Good color
PSYCH: Normal and appropriate interaction.
Course
Orders/Labs/Results
Orders:
Orders
08/22/23 10:48
IV Insert/Care/Rem.- Treatment PRN
08/22/23 10:58
Basic Metabolic Panel Urgent
Complete Blood Count/With Diff Urgent
Blood Culture Q30M
KAY Source: Blood/Venous
Specimen Description:
08/22/23 11:16
Blood Culture Q30M
KAY Source: Blood/Venous
Specimen Description:
08/22/23 11:26
CefTRIAXone [Rocephin] 1,000 mg IV NOW STA
Abnormal Lab Results
08/22/23
10:58
RBC 3.10 L 10^6/uL
(4.70-6.10)
Hgb 9.8 L g/dL
(13.0-18.0)
Hct 28.9 L %
(39.0-52.0)
MCH 31.6 H pg
(27.0-31.0)
RDW 17.4 H %
(11.5-14.5)
Absolute Neuts (auto) 9.0 H 10^3/uL
(1.4-6.5)
Absolute Lymphs (auto) 0.7 L 10^3/uL
(1.2-3.4)
Absolute Monos (auto) 0.8 H 10^3/uL
(0.1-0.6)
Neutrophils % 82.9 H %
(42.2-75.2)
Lymphocytes % 6.0 L %
(20.5-51.1)
Sodium 133 L mmol/L
(135-145)
Carbon Dioxide 21 L mmol/L
(22-30)
BUN 77 H mg/dl
(9-20)
Creatinine 1.7 H mg/dL
(0.7-1.3)
Glucose 128 H mg/dl
(70-99)
08/22/23 10:58
08/22/23 10:58
Vital Signs
Initial and Last Documented VS:
Initial Vital Signs
Pulse Resp BP Pulse Ox
53 17 114/54 95
08/22/23 10:21 08/22/23 10:21 08/22/23 10:21 08/22/23 10:21
Last Documented Vital Signs
Temp Pulse Resp BP Pulse Ox
96.6 F L 52 23 127/69 90
08/22/23 10:54 08/22/23 12:30 08/22/23 12:30 08/22/23 12:29 08/22/23 12:29
MDM/Problems Addressed
Differential Diagnosis Includes:
Patient with positive blood culture. Possible source would be the dental procedure. He does have a mild midsystolic murmur. Some lethargy per the family. Some rhonchi in the right base although recent x-ray was negative. No respiratory
distress. Labs reviewed blood culture referred to infectious disease and hospitalist.
*Pulse Oximetry
Patient hypoxic: no
*Critical Care Note
Total Time (30-74mins, 75-104mins- exclusive of procedures): Not Applicable
Data Reviewed
Review of Other/Old Records Reveals: Labs, Records, Radiology Studies and Testing
Update Note
Update Note:
Patient lists cephalexin as an allergy. Causes nausea vomiting diarrhea. Not a true allergy. This was reviewed with infectious disease. agree to continue Rocephin
ED Attending Note
-
Portions of this chart may have been created with voice recognition software.� Occasional wrong word or��sound alike� substitutions may have occurred due to the inherent limitations of voice recognition software.
Discharge Plan
Departure
Patient Disposition: Admit
Date of Disposition: 08/22/23
Time of Disposition: 11:15
Presentation/result/management discussed w/ accepting MD/DO: Hospitalist
Discharge Problem:
Strep bacteremia, Renal insufficiency
Prescriptions:
No Action
allopurinol 100 MG tablet
100 mg PO NOON
simvastatin 20 MG tablet
20 mg PO HS
finasteride 5 MG tablet
5 mg PO DAILY
PreserVision AREDS 4,296 mcg-226 mg-90 mg Capsule
1 cap PO BID
carvedilol 3.125 mg Tablet
3.125 mg PO BID Qty: 60 0RF
Eliquis 2.5 mg Tablet
2.5 mg PO BID
furosemide 40 mg Tablet
80 mg PO SUTUTHSA@0800
cetirizine [Zyrtec] 10 mg Tablet
10 mg PO DAILY PRN (Reason: allergies)
metolazone 5 mg Tablet
5 mg PO DAILYPRN PRN (Reason: edema)
fluticasone propionate [Flonase] 50 mcg/actuation Bertha,Suspension
2 spray INTRANASAL DAILY PRN (Reason: allergies)
escitalopram oxalate 5 mg Tablet
15 mg PO NOON
furosemide 40 mg tablet
120 mg PO MOWEFR@0800
albuterol sulfate 90 mcg/actuation HFA aerosol inhaler
2 puff inhalation R Q6HPRN PRN (Reason: shortness of breath or wheezing)
Interventions
Interventions:
*Risk Screen - Suicide Last Done: 08/22/23 10:50
*General Assessment Last Done: 08/22/23 10:50
*Neglect/Abuse Screening Last Done: 08/22/23 10:50
*ED COVID-19 Vaccine History Last Done: 08/22/23 10:50
Discharge Date and Time
Print Language: MONGOLIAN
[2023-08-22 10:50] VITALS: BMI 23.2
[2023-08-22 11:12] LABS: % Basophils 0.6 % (0-2); % Eosinophils 3.1 % (0-6); % Immature Granulocytes 0.4 % (0-0.5); % Neutrophils 82.9 % (42.2-75.2); Absolute Basophils 0.1 10^3/uL (0-0.2); Absolute Eosinophils 0.3 10^3/uL (0-0.7); Absolute Lymphocytes 0.7 10^3/uL (1.2-3.4); Absolute Monocytes 0.8 10^3/uL (0.1-0.6); Hematocrit 28.9 % (39.0-52.0); Hemoglobin 9.8 g/dL (13.0-18.0); Mean Corp Hgb Conc. 33.9 g/dL (33.0-37.0); Mean Corpuscular Hgb 31.6 pg (27.0-31.0); Mean Corpuscular Volume 93.2 fL (80.0-94.0); Mean Platelet Volume 10.1 fL (7.4-10.4); Nucleated Red Blood Cells % 0 % (-); Platelet Count 145 10^3/uL (130-400); Red Cell Dist. Width 17.4 % (11.5-14.5); White Blood Cell Count 10.8 10^3/uL (4.8-10.8)
[2023-08-22 11:20] LABS: Blood Urea Nitrogen 77 mg/dl (9-20); Calcium 9.3 mg/dl (8.4-10.2); Carbon Dioxide 21 mmol/L (22-30); Chloride 104 mmol/L (98-107); Estimated Creatinine Clearance 34 ml/min; Glucose 128 mg/dl (70-99); Potassium 4.4 mmol/L (3.5-5.1); Sodium 133 mmol/L (135-145)
[2023-08-22] MEDS: ROCEPHIN 1000 MG IV (11:50)
[2023-08-22 12:29] VITALS: BP 127/69
[2023-08-22 13:00] VITALS: BP 126/73
[2023-08-22 14:00] VITALS: BP 128/65
--- NOTE | 2023-08-22 14:18 | HPS.HSE ---
Family Physician
-
Family Physician: Boris Espana
Chief Complaint
-
Positive blood cultures
History of Present Illness
patient recently had dental work on his gums this week. He was to the ER 08/17 bleeding from his gums after the procedure. He was evaluated in the ER discharged home and his blood cultures came back positive for Streptococcus coccus so he was
called back. His only symptom is increased weakness and fatigue. Gum bleeding has stopped. Denies any pain from the gums. He is supposed to be off of Eliquis till tomorrow. He is also supposed to be on liquid diet for now.
he always feels cold. Denies any fever or chills. No sweats.
No nausea or vomiting.
In the last 2 weeks some increased shortness of breath. Improved leg edema. Denies any weight gain. No chest pain or palpitations. Not on home O2. He was here a month ago for pneumonia and heart failure decompensation.
Complains of cough which is chronic and not much productive.
Medical History
Past Medical History
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
Past Surgical History: Reports Other (Bilateral TKA Lumbar Discectomy SVT Ablation)
Social History
Tobacco: Non-smoker
Alcohol: None
Drug: None
Personal:
Living: With Family
Family History
Family History: Not pertinent
Allergies / Home Medications
Allergies reflects when Allergies were last updated in [employer].
Home Medications with original date entered in [employer]
Allergy/Medication List:
Allergies
Allergy/AdvReac Type Severity Reaction Status Date / Time
cephalexin Allergy Nausea / Verified 08/22/23 10:21
Vomiting
morphine Allergy Unknown Verified 08/22/23 10:21
Sulfa (Sulfonamide Allergy Unknown Verified 08/22/23 10:21
Antibiotics)
Home Medications
allopurinol 100 mg tablet 100 mg PO NOON Gout 07/13/14
finasteride 5 mg tablet 5 mg PO DAILY Urinary issue 07/13/14
simvastatin 20 mg tablet 20 mg PO HS High cholesterol 07/13/14
vitamins A,C,A-xcfe-boifud 4,296 mcg-226 mg-90 mg capsule (PreserVision AREDS) 1 cap PO BID Supplement 06/17/22
carvedilol 3.125 mg tablet 3.125 mg PO BID #60 tabs 08/12/22
apixaban 2.5 mg tablet (Eliquis) 2.5 mg PO BID Blood Clot Prevention/Tx 07/16/23
cetirizine 10 mg tablet (Zyrtec) 10 mg PO DAILY PRN allergies 08/20/23
escitalopram oxalate 5 mg tablet 15 mg PO NOON 08/20/23
fluticasone propionate 50 mcg/actuation nasal spray,suspension 2 spray intranasal DAILY PRN allergies 08/20/23
furosemide 40 mg tablet 80 mg PO SUTUTHSA@0800 08/20/23
furosemide 40 mg tablet 120 mg PO MOWEFR@0800 08/20/23
metolazone 5 mg tablet 5 mg PO DAILYPRN PRN edema 08/20/23
albuterol sulfate 90 mcg/actuation aerosol inhaler 2 puff inhalation R Q6HPRN PRN shortness of breath or wheezing 08/22/23
Review of Systems
-
A 12 point ROS was completed and negative except as noted: Yes
Physical Exam
Vital Signs
Vital Signs
Temp Pulse Resp BP Pulse Ox
96.6 F L 54 23 128/65 93
08/22/23 10:54 08/22/23 14:00 08/22/23 14:00 08/22/23 14:00 08/22/23 14:06
Physical Exam
General: No Apparent Distress
HEENT: Moist mucous membranes
Respiratory: Crackles (bibasilar ) and Non Labored Respirations; No Wheezes or Accessory Resp Muscle Use
Cardiac: S1/S2, Regular Rhythm and Murmur
GI: Soft
Musculoskeletal: No No Edema (BL LE edema trace )
Neuro: AO x 3
Psych: Calm
Laboratory Results
-
08/22/23 10:58
08/22/23 10:58
Data Reviewed
-
Lab Data: Labs Reviewed by me
Impression/Plan
-
Streptococcus bacteremia-based on recent events including dental work and gum bleeding suspect oral source. He is afebrile and hemodynamically stable. Admit to hospital for further treatment and evaluation. Start on IV ceftriaxone. Repeat blood
cultures. Consult ID.
Chronic heart failure with reduced EF-today's weight in the ER is higher than last couple of days. Recheck weight. Patient states improved leg edema compared to before. Continue with his Lasix.
Paroxysmal atrial fibrillation-'s clinically in sinus rhythm. Eliquis was supposed to be on hold till tomorrow-Resume if no bleeding.
Recent dental workup-currently on liquid diet which I would continue. Without further gum bleeding.
Chronic kidney disease stage III-creatinine 1.7 which is at his baseline.
DVT prophylaxis -
Heparin till Eliquis resumed.
[2023-08-22 14:35] VITALS: BP 119/69; BMI 25.0
--- NOTE | 2023-08-22 14:38 | PTCARENOTE ---
Larry weight done with pants and shoes on. will bring dentures in in am.
--- NOTE | 2023-08-22 14:50 | CON.ID ---
Consultation
-
Date/Time Consultation Requested: August 22, 2023 1420
Date/Time Consultation Performed: August 22, 2023 1450
Requesting Provider: Dr. Kal Wren
Performing Provider: Dr. Ameena Buckley
Reason for Consultation: Bacteremia
Chief Complaint / Past History
Chief Complaint
Positive blood culture
History of Present Illness
History obtained from the patient, his , and daughter at bedside. He is an 87-year-old male with atrial fibrillation, heart failure with reduced EF, CKD 3, who noted to have a clot in his left lower molar. On August 17 the dentist extracted the
clot. Post-procedure, he had profuse bleeding and went to the ER the same day. Bleeding was controlled and he was discharged home. He had recurrence of gum bleeding and return to the ER on August 19. His white count was 15.2. Blood cultures were
obtained. The bleeding gum was cauterized. Eliquis held. He was discharged to home. Today he received a phone call that blood culture is positive. He therefore came back to the hospital. No fevers or chills. Only complaint is weakness and
fatigue. Otherwise his appetite is good. No further gout bleeding. No other complaints.
Past History
Additional Past Medical History:
Hypertension
Atrial fibrillation
Heart failure with reduced EF
CKD3
Anxiety/depression
Bilateral total knee replacements
Lumbar discectomy
Allergy History:
cephalexin Allergy (Verified 08/22/23 10:21)
Nausea / Vomiting
morphine Allergy (Verified 08/22/23 10:21)
Unknown
Sulfa (Sulfonamide Antibiotics) Allergy (Verified 08/22/23 10:21)
Unknown
Medications Reviewed: Yes
Current Antibiotics:
ceftriaxone
Social History
Tobacco: Non-Smoker
Alcohol: Occasional
Drug: None
Personal:
Living: With Family
Family History
Family History: Not Pertinent
Review of Systems
Review of Systems
General: Negative Fever, Chills or Change in Appetite
HEENT: Negative Sinus Problems or Headache
Cardiovascular: Negative Chest Pain
Respiratory: Negative Dyspnea or Cough
Gasteroenterology: Negative Nausea or Vomiting
Genital / Urological: Negative Dysuria or Flank Pain
Endocrine: Weakness and Fatigue
Skin / Hair / Nails: Negative Rash
Neurological: Negative Headache or Dizziness
All systems: All other systems were reviewed and were negative
Vital Signs
Temp Pulse Resp BP Pulse Ox
97.9 F 53 18 119/69 100
08/22/23 14:35 08/22/23 14:35 08/22/23 14:35 08/22/23 14:35 08/22/23 14:35
Selected Entries
08/22/23
10:54
Temp 96.6 F L
Physical Exam
Physical Exam
Constitutional: No Acute Distress and Comfortable
Eyes: No Conjunctival Hemorrhage and Sclera Anicteric
Pharynx: Benign
Oral: Other (no bleeding)
Cardiovascular: Regular Rate and S1/S2
Pulmonary: Clear
Gastrointestinal: Soft, Non Tender, Non Distended and Normal Bowel Sounds
Genito-Urinary: Negative CVA Tenderness
Extremities: Negative Edema
Neurological: AO x 3
Lab / Diagnostic Study Results
08/22/23 10:58
08/22/23 10:58
Abs Immat Gran (auto) 0.0 10^3/uL (0-0.05) 08/22/23 10:58
Absolute Neuts (auto) 9.0 10^3/uL (1.4-6.5) H 08/22/23 10:58
Absolute Lymphs (auto) 0.7 10^3/uL (1.2-3.4) L 08/22/23 10:58
Absolute Monos (auto) 0.8 10^3/uL (0.1-0.6) H 08/22/23 10:58
Absolute Basos (auto) 0.1 10^3/uL (0-0.2) 08/22/23 10:58
Immature Gran % 0.4 % (0-0.5) 08/22/23 10:58
Neutrophils % 82.9 % (42.2-75.2) H 08/22/23 10:58
Lymphocytes % 6.0 % (20.5-51.1) L 08/22/23 10:58
Monocytes % 7.0 % (1.7-9.3) 08/22/23 10:58
Eosinophils % 3.1 % (0-6) 08/22/23 10:58
Basophils % 0.6 % (0-2) 08/22/23 10:58
Microbiology Results
Micro:
08/22/23 11:16 Blood Culture - Pending
Blood/Venous
08/22/23 10:58 Blood Culture - Pending
Blood/Venous
08/22/23 CXR: Mild cardiomegaly, unchanged. No acute pulmonary process.
Assessment / Plan
# Streptococcus bacteremia (1 of 2 sets)
- Oral source from recent dental procedure with significant bleeding
- Suspect transient bacteremia.
-Repeat blood cultures pending
- Continue ceftriaxone.
--- NOTE | 2023-08-22 15:00 | PTCARENOTE ---
Received patient from ED via stretcher. AAOx3, assisted to bed with rolling walker. Family at bedside. Assessed and oriented to room. Call rodriguez in close reach. Will continue to monitor.
[2023-08-22 16:15] VITALS: BMI 25.0
[2023-08-22] MEDS: LEXAPRO 15 MG PO (16:18)
[2023-08-22] MEDS: ZYLOPRIM 100 MG PO (16:19)
[2023-08-22] MEDS: OCUVITE SOFTGEL 1 CAP PO (20:33)
[2023-08-22] MEDS: HEPARIN 5000 UNITS SC (20:34)
[2023-08-22] MEDS: LIPITOR 10 MG PO (20:38)
[2023-08-22] MEDS: TYLENOL 650 MG PO (20:38)
--- NOTE | 2023-08-22 21:00 | PTCARENOTE ---
Pts HR 48-53 on pox after ambulating to bathroom, house FIRE OFFICIAL order to hold coreg dose.
[2023-08-22 23:27] VITALS: BP 136/69
[2023-08-23 06:00] VITALS: BMI 25.1
[2023-08-23 06:51] LABS: Hematocrit 26.4 % (39.0-52.0); Hemoglobin 9.1 g/dL (13.0-18.0); Mean Corp Hgb Conc. 34.5 g/dL (33.0-37.0); Mean Corpuscular Hgb 32.4 pg (27.0-31.0); Mean Platelet Volume 10.2 fL (7.4-10.4); Platelet Count 135 10^3/uL (130-400); Red Blood Cell Count 2.81 10^6/uL (4.70-6.10); Red Cell Dist. Width 17.3 % (11.5-14.5); White Blood Cell Count 7.2 10^3/uL (4.8-10.8)
[2023-08-23 07:26] LABS: Blood Urea Nitrogen 70 mg/dl (9-20); Calcium 9.1 mg/dl (8.4-10.2); Carbon Dioxide 21 mmol/L (22-30); Chloride 103 mmol/L (98-107); Estimated Creatinine Clearance 30 ml/min; Glucose 89 mg/dl (70-99); Potassium 4.4 mmol/L (3.5-5.1); Sodium 134 mmol/L (135-145)
[2023-08-23 07:55] LABS: TSH 5.42 uIU/ml (0.47-4.68)
[2023-08-23] MEDS: ROCEPHIN 1000 MG IV (08:40)
[2023-08-23] MEDS: STERILE WATER FOR INJECTION 10 ML IV (08:40)
[2023-08-23 08:41] VITALS: BP 118/57
[2023-08-23] MEDS: HEPARIN 5000 UNITS SC (08:41)
[2023-08-23] MEDS: OCUVITE SOFTGEL 1 CAP PO (08:42)
[2023-08-23] MEDS: LASIX 120 MG PO (08:43)
[2023-08-23] MEDS: PROSCAR 5 MG PO (08:43)
[2023-08-23 09:00] VITALS: BP 88/61; PULSE 50; O2SAT 97
[2023-08-23 09:25] VITALS: BP 88/61; PULSE 52; O2SAT 96
[2023-08-23 10:47] VITALS: BP 118/66
[2023-08-23] MEDS: ZYLOPRIM 100 MG PO (11:45)
[2023-08-23] MEDS: LEXAPRO 15 MG PO (11:45)
--- NOTE | 2023-08-23 12:53 | W.PN.ID1 ---
Date of Service
Date of Service: August 23, 2023
Today's Communication
Can transition ceftriaxone to cefdinir 300mg po q24 through 08/31/23.
Assessment / Plan
# Streptococcus transient bacteremia (1 of 2 sets)
- Oral source from recent dental procedure with significant bleeding
-Repeat blood cultures (before abx) neg to date.
- Can transition ceftriaxone to cefdinir 300mg po q24 through 08/31/23.
#Additional Past Medical History:
Hypertension
Atrial fibrillation
Heart failure with reduced EF
CKD3
Anxiety/depression
Bilateral total knee replacements
Lumbar discectomy
Chief Complaint
-: Bacteremia
Subjective / Review of Systems
No complaints
Vital Signs / Physical Exam
Vital Signs
Vital Signs
Temp Pulse Resp BP Pulse Ox
97.4 F 52 20 118/66 98
08/23/23 08:41 08/23/23 10:47 08/23/23 08:41 08/23/23 10:47 08/23/23 10:47
Physical Exam
Constitutional: No Acute Distress
Pulmonary: Clear
Gastrointestinal: Soft, Non Tender and Non Distended
Neurological: AO x 3
Objective Data
Lab Data
Lab Results
08/23/23 06:28
08/23/23 06:28
Estimated Creat Clear 30 ml/min 08/23/23 06:28
Most recent labs reviewed.
Micro Results:
08/22/23 11:16 Blood Culture - Preliminary
Blood/Venous No Growth in 24 hours- Final report to follow
08/22/23 10:58 Blood Culture - Preliminary
Blood/Venous No Growth in 24 hours- Final report to follow
08/22/23 CXR: Mild cardiomegaly, unchanged. No acute pulmonary process.
Care Review
Plan reviewed with: Physician (Dr. Wren)
--- NOTE | 2023-08-23 13:12 | W.PN.HOSP.TC ---
Today's Communication/Plan
-
DC planning
Assessment / Plan
Assessment / Plan
Streptococcus bacteremia-based on recent events including dental work and gum bleeding suspect oral source. He is afebrile and hemodynamically stable. Transient. Repeat cultures negative. Will follow antibiotic recommendations per ID.
Chronic heart failure with reduced EF-today's weight is bit higher than baseline. Patient states improved leg edema compared to before. Patient states he is not short of breath. Check oxygen on room air if normal will ambulate him and if
he is feeling okay we will continue his current dose of Lasix. Advised to keep.
Paroxysmal atrial fibrillation-'s clinically in sinus rhythm. Eliquis was supposed to be on hold till tomorrow-Resume today.
Recent dental workup-started on solid diet
Chronic kidney disease stage III-creatinine 1.7 which is at his baseline.
If able to switch to po abx and oxygenation is ok will dc home today
DW family at bedside regarding the plan
Anticipated Discharge: Today
Subjective/Interval History
-
Date of Service: August 23, 2023
Feels better. Sitting in the chair weakness and tiredness.
Denies any shortness of breath but is put on 2 L of oxygen. Denying any chest pain or palpitations.
Family states his baseline weight is 164 pounds.
Objective Data
-
Labs:
Laboratory Results
08/23/23
06:28
WBC 7.2
Hgb 9.1 L
Hct 26.4 L
Plt Count 135
Sodium 134 L
Potassium 4.4
Chloride 103
Carbon Dioxide 21 L
BUN 70 H
Creatinine 1.7 H
Glucose 89
Calcium 9.1
Vital Signs:
Vital Signs
Temp Pulse Resp BP Pulse Ox
97.4 F 52 20 118/66 98
08/23/23 08:41 08/23/23 10:47 08/23/23 08:41 08/23/23 10:47 08/23/23 10:47
I&O
08/22/23 08/23/23 08/24/23
06:59 06:59 06:59
Intake Total 240 / 240
Balance 240 / 240
Review of Systems
-
Constitutional: Denies Fever or Chills
Respiratory: Denies Cough or Trouble Breathing
Cardiac: Denies Chest Pain or Palpitations
Neuro: Denies Dizzy
Physical Exam
-
General: No Apparent Distress and Other (hard of hearing)
HEENT: Moist Mucous Membranes
Respiratory: Clear to Auscultation; Negative Wheezes or Crackles
Cardiac: Regular Rhythm and S1/S2
GI: Soft
Neuro: AO x 3
Data Reviewed
-
Labs: Labs Reviewed by me
--- NOTE | 2023-08-23 13:19 | W.DS.TRANS ---
DC Summary - Health Care Consultant
-
Discharge Instructions:
Sleep Apnea Risk Low
Discharge Diagnosis/Procedures Transient streptococcal bacteremia post dental
procedure
Diet 2 Gram Sodium
Activity As tolerated
Driving Restrictions As prior to admission
Specialty Instructions Weigh Daily
Instructions:
Stand-Alone Forms:
Changes to Home Medications: Yes
Discharge Medications:
DC Medications w/original date entered in [employer]
allopurinol 100 mg tablet 100 mg PO NOON Gout 07/13/14
finasteride 5 mg tablet 5 mg PO DAILY Urinary issue 07/13/14
simvastatin 20 mg tablet 20 mg PO HS High cholesterol 07/13/14
vitamins A,C,S-lrun-mhcqsj 4,296 mcg-226 mg-90 mg capsule (PreserVision AREDS) 1 cap PO BID Supplement 06/17/22
carvedilol 3.125 mg tablet 3.125 mg PO BID #60 tabs 08/12/22
apixaban 2.5 mg tablet (Eliquis) 2.5 mg PO BID Blood Clot Prevention/Tx 07/16/23
cetirizine 10 mg tablet (Zyrtec) 10 mg PO DAILY PRN allergies 08/20/23
escitalopram oxalate 5 mg tablet 15 mg PO NOON depression/anxiety 08/20/23
fluticasone propionate 50 mcg/actuation nasal spray,suspension 2 spray intranasal DAILY PRN allergies 08/20/23
furosemide 40 mg tablet 80 mg PO SUTUTHSA@0808/20/23
furosemide 40 mg tablet 120 mg PO MOWEFR@0808/20/23
metolazone 5 mg tablet 5 mg PO DAILYPRN PRN edema 08/20/23
albuterol sulfate 90 mcg/actuation aerosol inhaler 2 puff inhalation R Q6HPRN PRN shortness of breath or wheezing 08/22/23
cefdinir 300 mg capsule 300 mg PO DAILY #8 caps 08/23/23
Home Medication Changes
new medication-cefdinir
Pending Results: No
[2023-08-23] MEDS: PREVNAR 20 0.5 ML IM (14:30)
--- NOTE | 2023-08-23 14:47 | VNURNOTE ---
Home Health Liaison met with patient, Miranda and daughter at 1300 to discuss [facility] nurse/therapy, visits, schedule and homebound status. Patient is agreeable and understands that visits at home will be 2-3 x per week to assess and teach medical
management. Patient's daughter and have questions regarding privated caregivers. List provided and discussed.
[facility] brochure provided with contact information. Miranda is aware that [facility] will contact them for start of care in 1-2 days after discharge from .
[facility] referral completed in [facility].
[2023-08-23 14:58] VITALS: BP 126/59
--- NOTE | 2023-08-23 15:15 | PTCARENOTE ---
vitals obtained within 4 hrs of d/c could not obtain oral and axillary temp. Rectal temp 96.1 Dr Wren aware, okay for discharge. Instructed and daughter to monitor temp at home and alert PCP with any changed in condition. Verbalized
understanding
--- NOTE | 2023-08-23 15:53 | CM ---
Alert awake oriented [facility] patient who lives with his Miranda who lives in a 2 story home with 31 step to enter and 16 steps to bed and bathroom. He is assisted in all activities of daily living.He was offered VN family requested [facility] . Marielle
liaison saw pt and set up VN.Cane Walker .
No VN hx / No SNF history
Pharmacy [facility]
PCP DR Espana
PLAN Home [facility] if accepted
--- NOTE | 2023-08-23 15:55 | W.DCSUMMARY ---
Discharge Summary
Discharge Data
Date of Admission: 08/22/23
Date of Discharge: 08/23/23
-
Pending Results: No
Hospital Course
Primary diagnosis:
Transient Streptococcus bacteremia-based on recent events including dental work and gum bleeding suspect oral source.
Secondary diagnosis:
Chronic heart failure with reduced EF
Paroxysmal atrial fibrillation
Chronic kidney disease stage III
Hospital course:
Patient recently had dental work and came to ER initially because of gum bleeding and then was discharged home. He was brought back because his blood cultures drawn in the ER showed Streptococcus bacteremia. He apparently was weak with bacteremia
but he had no fevers or chills. Not toxic. Suspected source probably dental. Was seen by ID. Was initially started on ceftriaxone. Repeat cultures were negative. The suspicion is this was a transient bacteremia post dental work and gum
bleeding. Was advised oral cefdinir till 08/31/2023 by ID and was discharged home.
Consultants on board:
Infectious disease-Ameena Abbott
Discharge Plan
-
Patient Disposition: Home with Home Care
Discharge Diagnosis/Procedures: Transient streptococcal bacteremia post dental procedure
Diet: 2 Gram Sodium
Activity: As tolerated
Driving Restrictions: As prior to admission
Specialty Instructions: Weigh Daily- Call MD for wt gain/loss 3 lbs overnight/5 lbs in 1 week
Referrals:
Boris Espana MD [Family Provider] - in less than 1 week
Prescriptions:
New
cefdinir 300 mg capsule
300 mg PO DAILY Qty: 8 0RF
Continued
allopurinol 100 MG tablet
100 mg PO NOON
simvastatin 20 MG tablet
20 mg PO HS
finasteride 5 MG tablet
5 mg PO DAILY
PreserVision AREDS 4,296 mcg-226 mg-90 mg Capsule
1 cap PO BID
carvedilol 3.125 mg Tablet
3.125 mg PO BID Qty: 60 0RF
Eliquis 2.5 mg Tablet
2.5 mg PO BID
furosemide 40 mg Tablet
80 mg PO SUTUTHSA@0800
cetirizine [Zyrtec] 10 mg Tablet
10 mg PO DAILY PRN (Reason: allergies)
metolazone 5 mg Tablet
5 mg PO DAILYPRN PRN (Reason: edema)
fluticasone propionate 50 mcg/actuation [place],Suspension
2 spray INTRANASAL DAILY PRN (Reason: allergies)
escitalopram oxalate 5 mg Tablet
15 mg PO NOON
furosemide 40 mg tablet
120 mg PO MOWEFR@0800
albuterol sulfate 90 mcg/actuation HFA aerosol inhaler
2 puff inhalation R Q6HPRN PRN (Reason: shortness of breath or wheezing)
Discharge Orders:
Discharge Patient (As Directed); Ordered 08/23/23
Ordered By: Kal Wren
Discharge Date and Time
Discharge Date/Time: 08/23/23 15:31
Print Language: PARAGUAYAN
== END 2023-08-23 15:31 | disposition home health service (06) | DRG 872 ==
LOC: 4 EAST ACU 13:49
PROVIDERS: ADMITTING PHYSICIAN Internal Medicine; CONSULT PHYSICIAN Internal Medicine Infectious Disease; EMERGENCY PHYSICIAN Emergency Medicine; FAMILY PHYSICIAN Family Medicine
DX: R78.81 Bacteremia (principal); I13.0 Hypertensive heart and chronic kidney disease with heart failure and stage 1 through stage 4 chronic kidney disease, or unspecified chronic kidney disease; I50.22 Chronic systolic (congestive) heart failure; B95.5 Unspecified streptococcus as the cause of diseases classified elsewhere; K06.8 Other specified disorders of gingiva and edentulous alveolar ridge; N18.30 Chronic kidney disease, stage 3 unspecified; I48.0 Paroxysmal atrial fibrillation; F41.9 Anxiety disorder, unspecified; F32.A Depression, unspecified; Z79.01 Long term (current) use of anticoagulants
CPT/HCPCS: 71046; 80048; 82533; 84443; 85025; 85027; 86850; 86860; 86870; 86880; 86900; 86901; 86905; 87040; 87077; 87205; 90677; 96374; 97162; 97166; 97530; 99285; G0009

== ENCOUNTER → 2023-09-08 12:47 | Outpatient (REF) | payer MEDICARE, SELFPAY | LOC: RAD 12:47 | PROVIDERS: ATTENDING PHYSICIAN Nurse Practitioner; FAMILY PHYSICIAN Family Medicine | DX: R06.02 Shortness of breath (principal); I50.20 Unspecified systolic (congestive) heart failure | CPT/HCPCS: 71046 ==

== ENCOUNTER 2023-09-15 09:53 | Emergency (ER) | payer MEDICARE, SELFPAY ==
[2023-09-15 09:56] VITALS: BP 102/44
--- NOTE | 2023-09-15 10:42 | ED.GENMED ---
History of Present Illness
General
Chief Complaint: Fall
Source: patient
Time Seen by Provider: 09/15/23 10:11
Travel History
Have you had any contact with someone who has COVID-19?: No
Do you have any symptoms of coronavirus? Fever > 100 degrees, chills, cough, shortness of breath, sore throat, loss of taste or smell, muscle aches, or headache?: No
History of Present Illness
History of Present Illness:
87-year-old male presents to the emergency room complaining of pain right buttock. Patient had a fall about 2 weeks ago where he landed on his buttock. Patient attempted to sit in a chair and missed it. He had moderate pain at the time but was
able to ambulate. Pain increased 2 days ago and was noted to have swelling in the area. There is also an area of ecchymosis there. Patient denies any abdominal pain per se. No fever or chills.
Past History
Past History
ED Past Medical History: Arrthythmia (Atrial fibrillation), HTN, Hypercholesterolemia and Other (Renal insufficiency)
ED Past Surgical History: None
Patient has exhibited threatening behavior?: No
PSI?: No
Social History
Tobacco: Non-smoker
Alcohol: None
Drug: None
Personal:
Living: with family
Phy Exam
Physical Exam
Physical Exam:
General: Awake, Alert, Oriented X3. No acute distress.
Vitals: unremarkable
Head: Atraumatic
Eyes: Pupils equal, EOMI
Throat: Airway intact, no exudates
Neck: Trachea midline
Abd: Soft, Nontender, No pulsatile mass
Pelvis: No instability, right buttock hematoma with overlying ecchymosis.
Neuro: Nonfocal
Skin: Warm, dry, no rash
Extremities: pulses equal b/l, no edema
Course
Orders/Labs/Results
Orders:
Orders
09/15/23 10:[address] Pelvis W/o Iv Contrast Urgent
Comment:
Reason For Exam: right buttock swelling
09/15/23 11:06
VINI Polyspecific GEL Urgent
BBK Wristband Number:
Type+Screen Urgent
Basic Metabolic Panel Urgent
Complete Blood Count/With Diff Urgent
09/15/23 13:33
Acetaminophen [Tylenol] 1,000 mg PO NOW STA
Abnormal Lab Results
09/15/23
11:06
RBC 2.87 L 10^6/uL
(4.70-6.10)
Hgb 9.1 L g/dL
(13.0-18.0)
Hct 27.1 L %
(39.0-52.0)
MCV 94.4 H fL
(80.0-94.0)
MCH 31.7 H pg
(27.0-31.0)
RDW 16.5 H %
(11.5-14.5)
Absolute Lymphs (auto) 0.7 L 10^3/uL
(1.2-3.4)
Absolute Monos (auto) 0.8 H 10^3/uL
(0.1-0.6)
Lymphocytes % 8.6 L %
(20.5-51.1)
Monocytes % 9.5 H %
(1.7-9.3)
Potassium 3.3 L mmol/L
(3.5-5.1)
BUN 99 H mg/dl
(9-20)
Creatinine 2.3 H mg/dL
(0.7-1.3)
Antibody Screen Positive A
(Negative)
Direct Antiglob Test Positive A
(Negative)
VINI, IgG Specific 1+ H
(Negative)
09/15/23 11:06
09/15/23 11:06
Vital Signs
Initial and Last Documented VS:
Initial Vital Signs
Temp Pulse Resp BP Pulse Ox
98.2 F 50 18 102/44 96
09/15/23 09:56 09/15/23 09:56 09/15/23 09:56 09/15/23 09:56 09/15/23 09:56
Last Documented Vital Signs
Temp Pulse Resp BP Pulse Ox
98.2 F 50 18 102/44 96
09/15/23 09:56 09/15/23 09:56 09/15/23 09:56 09/15/23 09:56 09/15/23 09:56
MDM/Problems Addressed
Differential Diagnosis Includes:
pelvic fx, buttock hematoma, hip fx
MDM/Problems Addressed:
No fx on imaging but confirmation of gluteal hematoma. Hold Eliquis for 2 days. Warm compresses. F/u with primary. Return for worsening.
Chronic conditions affecting care: Arrhythmia (a fib)
*Radiology
Radiology exam reviewed: radiology read reviewed
*Critical Care Note
Total Time (30-74mins, 75-104mins- exclusive of procedures): Not Applicable
Patient Management
Escalation/DeEscalation of care consider admission/obs:
Consider obs but hematoma size seems stable now. No role for draining hematoma w/o evidence of skin necrosis or hemodynamic instability. Hgb stable from previous measurement. Therefore d/c home.
ED Attending Note
-
Portions of this chart may have been created with voice recognition software.� Occasional wrong word or��sound alike� substitutions may have occurred due to the inherent limitations of voice recognition software.
Discharge Plan
Departure
Patient Disposition: Home (Routine Discharge)
Date of Disposition: 09/15/23
Time of Disposition: 13:27
Patient with high blood pressure during this ER visit?: No
Condition: Good
Discharge Problem:
Hematoma of right buttock
Instructions: Hematoma
Prescriptions:
No Action
allopurinol 100 MG tablet
100 mg PO NOON
simvastatin 20 MG tablet
20 mg PO HS
finasteride 5 MG tablet
5 mg PO DAILY
PreserVision AREDS 4,296 mcg-226 mg-90 mg Capsule
1 cap PO BID
carvedilol 3.125 mg Tablet
3.125 mg PO BID Qty: 60 0RF
Eliquis 2.5 mg Tablet
2.5 mg PO BID
furosemide 40 mg Tablet
80 mg PO SUTUTHSA@0800
cetirizine [Zyrtec] 10 mg Tablet
10 mg PO DAILY PRN (Reason: allergies)
metolazone 5 mg Tablet
5 mg PO DAILYPRN PRN (Reason: edema)
fluticasone propionate 50 mcg/actuation [place],Suspension
2 spray INTRANASAL DAILY PRN (Reason: allergies)
escitalopram oxalate 5 mg Tablet
15 mg PO NOON
furosemide 40 mg tablet
120 mg PO MOWEFR@0800
albuterol sulfate 90 mcg/actuation HFA aerosol inhaler
2 puff inhalation R Q6HPRN PRN (Reason: shortness of breath or wheezing)
cefdinir 300 mg capsule
300 mg PO DAILY Qty: 8 0RF
Referrals:
Boris Espana MD [Family Provider] -
Activity Restrictions/Additional Instructions:
Hold Eliquis for 2 days. Weight bear as tolerated. Return for any issues.
Interventions
Interventions:
*Risk Screen - Suicide Last Done: 09/15/23 09:56
*General Assessment Last Done: 09/15/23 09:56
*Neglect/Abuse Screening Last Done: 09/15/23 09:56
*ED COVID-19 Vaccine History Last Done: 09/15/23 09:56
ED-Musculoskeletal Assessment Last Done: 09/15/23 10:19
ED- Neurological Assessment Last Done: 09/15/23 10:19
ED-Skin Assessment Last Done: 09/15/23 10:19
Discharge Date and Time
Print Language: YEMENI
[2023-09-15 11:19] LABS: % Basophils 0.9 % (0-2); % Eosinophils 5.3 % (0-6); % Immature Granulocytes 0.5 % (0-0.5); % Lymphocytes 8.6 % (20.5-51.1); % Monocytes 9.5 % (1.7-9.3); % Neutrophils 75.2 % (42.2-75.2); Absolute Basophils 0.1 10^3/uL (0-0.2); Absolute Eosinophils 0.5 10^3/uL (0-0.7); Absolute Lymphocytes 0.7 10^3/uL (1.2-3.4); Absolute Monocytes 0.8 10^3/uL (0.1-0.6); Absolute Neutrophils 6.4 10^3/uL (1.4-6.5); Hematocrit 27.1 % (39.0-52.0); Hemoglobin 9.1 g/dL (13.0-18.0); Mean Corp Hgb Conc. 33.6 g/dL (33.0-37.0); Mean Corpuscular Hgb 31.7 pg (27.0-31.0); Mean Corpuscular Volume 94.4 fL (80.0-94.0); Mean Platelet Volume 10.3 fL (7.4-10.4); Nucleated Red Blood Cells % 0 % (-); Platelet Count 172 10^3/uL (130-400); Red Blood Cell Count 2.87 10^6/uL (4.70-6.10); Red Cell Dist. Width 16.5 % (11.5-14.5); White Blood Cell Count 8.6 10^3/uL (4.8-10.8)
[2023-09-15 11:35] LABS: Blood Urea Nitrogen 99 mg/dl (9-20); Calcium 9.4 mg/dl (8.4-10.2); Carbon Dioxide 28 mmol/L (22-30); Chloride 99 mmol/L (98-107); Glucose 83 mg/dl (70-99); Potassium 3.3 mmol/L (3.5-5.1); Sodium 138 mmol/L (135-145); eGFR 26.64
[2023-09-15] MEDS: TYLENOL 1000 MG PO (13:38)
== END 2023-09-15 14:05 | disposition home or self-care (01) ==
LOC: EMR 09:53
PROVIDERS: EMERGENCY PHYSICIAN Emergency Medicine; FAMILY PHYSICIAN Family Medicine
DX: S30.0XXA Contusion of lower back and pelvis, initial encounter (principal); W19.XXXA Unspecified fall, initial encounter; I10 Essential (primary) hypertension; E78.00 Pure hypercholesterolemia, unspecified; I48.91 Unspecified atrial fibrillation; N28.9 Disorder of kidney and ureter, unspecified; Z79.01 Long term (current) use of anticoagulants; Z88.1 Allergy status to other antibiotic agents; Z88.5 Allergy status to narcotic agent; Z88.2 Allergy status to sulfonamides
CPT/HCPCS: 99284; 72192; 80048; 85025; 86850; 86860; 86870; 86880; 86900; 86901

== ENCOUNTER 2023-11-18 19:06 | Emergency (ER) | payer MEDICARE, SELFPAY ==
[2023-11-18 19:09] VITALS: BP 129/58
[2023-11-18 19:24] LABS: % Basophils 0.8 % (0-2); % Eosinophils 6.2 % (0-6); % Immature Granulocytes 0.2 % (0-0.5); % Lymphocytes 10.4 % (20.5-51.1); % Monocytes 12.5 % (1.7-9.3); % Neutrophils 69.9 % (42.2-75.2); Absolute Basophils 0.1 10^3/uL (0-0.2); Absolute Eosinophils 0.4 10^3/uL (0-0.7); Absolute Lymphocytes 0.7 10^3/uL (1.2-3.4); Absolute Monocytes 0.8 10^3/uL (0.1-0.6); Absolute Neutrophils 4.7 10^3/uL (1.4-6.5); Hematocrit 29.9 % (39.0-52.0); Hemoglobin 10.5 g/dL (13.0-18.0); Mean Corp Hgb Conc. 35.1 g/dL (33.0-37.0); Mean Corpuscular Hgb 30.6 pg (27.0-31.0); Mean Corpuscular Volume 87.2 fL (80.0-94.0); Mean Platelet Volume 10.3 fL (7.4-10.4); Nucleated Red Blood Cells % 0 % (-); Platelet Count 151 10^3/uL (130-400); Red Blood Cell Count 3.43 10^6/uL (4.70-6.10); Red Cell Dist. Width 15.7 % (11.5-14.5); White Blood Cell Count 6.7 10^3/uL (4.8-10.8)
[2023-11-18 19:44] LABS: ALT (SGPT) 43 U/L (0-50); AST (SGOT) 64 U/L (17-59); Albumin 3.7 g/dl (3.5-5.0); Alkaline Phosphatase 185 U/L (38-126); Blood Urea Nitrogen 108 mg/dl (9-20); Calcium 8.5 mg/dl (8.4-10.2); Carbon Dioxide 25 mmol/L (22-30); Chloride 97 mmol/L (98-107); Glucose 111 mg/dl (70-99); Potassium 3.4 mmol/L (3.5-5.1); Sodium 132 mmol/L (135-145); Total Bilirubin 0.9 mg/dl (0.2-1.3); Total Protein 7.2 g/dl (6.3-8.2); eGFR 31.31
[2023-11-18 21:51] VITALS: BP 135/72
--- NOTE | 2023-11-18 22:08 | ED.GENMED ---
History of Present Illness
General
Chief Complaint: Rectal Bleeding
Time Seen by Provider: 11/18/23 21:49
History of Present Illness
History of Present Illness:
88-year-old male with history of A-fib no longer on Eliquis, CHF, hypertension, hyperlipidemia presents to the emergency department with son and for evaluation of blood in his depends today. The son also notes that the patient had urinated
overnight several days ago and there was blood all over the toilet seat on the wall. Patient denies any dysuria or urinary frequency. Denies any knowledge of black or bloody stools recently
Past History
Past History
ED Past Medical History: Arrthythmia (Atrial fibrillation), HTN, Hypercholesterolemia and Other (Renal insufficiency)
ED Past Surgical History: None
Patient has exhibited threatening behavior?: No
PSI?: No
Social History
Tobacco: Non-smoker
Alcohol: None
Drug: None
Personal:
Living: with family
Review of Systems
Review of Systems
Allergies reviewed?: Yes
All Other Systems: ROS reviewed and negative except as documented in HPI and ROS
Phy Exam
Physical Exam
Physical Exam:
GEN: Well appearing, NAD, WDWN
Eyes: PERRLA, EOMs intact, no scleral icterus
HENT: NCAT, oral mucosa moist
Lungs: CTAB, no wheezes, rales, rhonchi, normal chest wall excursion
Cardiac: RRR, no M/R/G, no peripheral edema. Radial pulses 2+ bilat
Abdomen: Soft, mild abdominal distention with no rigidity or tenderness
Rectal: Brown stool in the rectal vault, heme-negative. No evidence of blood from the urethral meatus, no testicular swelling or tenderness
Neuro: AO x 3
MSK: No gross deformity or ecchymosis. No edema. No digital clubbing
Skin: No rashes, petechiae. Normal color, no pallor or jaundice.
Psych: Calm, cooperative, proper hygiene
Course
Orders/Labs/Results
Orders:
Orders
11/18/23 19:16
VINI Polyspecific GEL Urgent
BBK Wristband Number:
Comment: ADD ON
Type+Screen Urgent
CBC/With Diff [Complete Blood Count/With Diff] Urgent
CMP [Comprehensive Metabolic Panel] Urgent
11/18/23 22:08
Straight cath- Treatment ONCE
11/18/23 22:21
Urinalysis Reflex To Culture Urgent
Date Specimen was Collected: 11/18/23
Time Specimen was Collected: 22:20
11/18/23 22:44
CT Abd/pel Without Iv Or Oral Urgent
Comment:
Reason For Exam: abd distention, hematuria
Abnormal Lab Results
11/18/23
19:16
RBC 3.43 L 10^6/uL
(4.70-6.10)
Hgb 10.5 L g/dL
(13.0-18.0)
Hct 29.9 L %
(39.0-52.0)
RDW 15.7 H %
(11.5-14.5)
Absolute Lymphs (auto) 0.7 L 10^3/uL
(1.2-3.4)
Absolute Monos (auto) 0.8 H 10^3/uL
(0.1-0.6)
Lymphocytes % 10.4 L %
(20.5-51.1)
Monocytes % 12.5 H %
(1.7-9.3)
Eosinophils % 6.2 H %
(0-6)
Sodium 132 L mmol/L
(135-145)
Potassium 3.4 L mmol/L
(3.5-5.1)
Chloride 97 L mmol/L
(98-107)
BUN 108 H* mg/dl
(9-20)
Creatinine 2.0 H mg/dL
(0.7-1.3)
Glucose 111 H mg/dl
(70-99)
AST 64 H U/L
(17-59)
Alkaline Phosphatase 185 H U/L
(38-126)
Antibody Screen Positive A
(Negative)
Direct Antiglob Test Positive A
(Negative)
VINI, IgG Specific 2+ H
(Negative)
11/18/23 19:16
11/18/23 19:16
Vital Signs
Initial and Last Documented VS:
Initial Vital Signs
Temp Pulse Resp BP Pulse Ox
98.5 F 56 18 129/58 98
11/18/23 19:09 11/18/23 19:09 11/18/23 19:09 11/18/23 19:09 11/18/23 19:09
Last Documented Vital Signs
Temp Pulse Resp BP Pulse Ox
97.9 F 58 17 143/74 95
11/19/23 00:41 11/19/23 00:41 11/19/23 00:41 11/19/23 00:41 11/19/23 00:41
MDM/Problems Addressed
MDM/Problems Addressed:
As I was unable to find a source of bleeding on exam a CT was obtained particular given the patient's abdominal distention. 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
hematuria. Hemoglobin is stable. He is also noted to have gradually worsening renal function particularly given the elevated BUN, this is gradually been uptrending over the past several lab evaluations. He is mentating at his baseline and
clinically stable overall, he will require outpatient urology and nephrology follow-up
*Critical Care Note
Total Time (30-74mins, 75-104mins- exclusive of procedures): Not Applicable
ED Attending Note
-
Portions of this chart may have been created with voice recognition software.� Occasional wrong word or��sound alike� substitutions may have occurred due to the inherent limitations of voice recognition software.
Discharge Plan
Departure
Patient Disposition: Home (Routine Discharge)
Date of Disposition: 11/18/23
Time of Disposition: 23:57
Admit to: Med/Surg
Patient with high blood pressure during this ER visit?: No
Discharge Problem:
Left renal mass, Hematuria
Instructions: Blood in Urine (Hematuria), Adult ED
Prescriptions:
No Action
allopurinol 100 MG tablet
100 mg PO NOON
simvastatin 20 MG tablet
20 mg PO HS
finasteride 5 MG tablet
5 mg PO DAILY
PreserVision AREDS 4,296 mcg-226 mg-90 mg Capsule
1 cap PO BID
carvedilol 3.125 mg Tablet
3.125 mg PO BID Qty: 60 0RF
Eliquis 2.5 mg Tablet
2.5 mg PO BID
furosemide 40 mg Tablet
80 mg PO SUTUTHSA@0800
cetirizine [Zyrtec] 10 mg Tablet
10 mg PO DAILY PRN (Reason: allergies)
metolazone 5 mg Tablet
5 mg PO DAILYPRN PRN (Reason: edema)
fluticasone propionate 50 mcg/actuation [place],Suspension
2 spray INTRANASAL DAILY PRN (Reason: allergies)
escitalopram oxalate 5 mg Tablet
15 mg PO NOON
furosemide 40 mg tablet
120 mg PO MOWEFR@0800
albuterol sulfate 90 mcg/actuation HFA aerosol inhaler
2 puff inhalation R Q6HPRN PRN (Reason: shortness of breath or wheezing)
cefdinir 300 mg capsule
300 mg PO DAILY Qty: 8 0RF
Referrals:
Denton Delgado MD [Active] - Call in 1-3 days for appt
Codi Kruse MD [Active] - Call in 1-3 days for appt
Jovi,Obris D., MD [Family Provider] -
Activity Restrictions/Additional Instructions:
The cause of the blood in your urine is likely from the large mass on your left kidney. It is highly concerning that this is cancer. You will need to follow-up with a urologist as well as manager environmental affairs to discuss both the mass on your kidney as
well as your abnormal kidney function blood work. The blood in the urine may wax and wane and it is not an immediate concern however if Sebastián is unable to empty his bladder he needs to be seen in the emergency department immediately
Your primary care physician should also follow-up with you to help coordinate care with the specialists
Return with any changes in mental status, vomiting, or fever
Interventions
Interventions:
*Risk Screen - Suicide Last Done: 11/18/23 21:41
*General Assessment Last Done: 11/18/23 21:42
*Neglect/Abuse Screening Last Done: 11/18/23 21:41
ED- Fall Risk Assessment Last Done: 11/19/23 00:41
*ED COVID-19 Vaccine History Last Done: 11/18/23 21:41
*Nursing Disposition Last Done: 11/19/23 00:41
IG-Itodux-Chvttoczxn Assessment Last Done: 11/18/23 21:54
ED- Cardiac Assessment Last Done: 11/18/23 21:54
ED-Male Genitourinary Assessment Last Done: 11/18/23 21:54
ED- Pulmonary Assessment Last Done: 11/18/23 21:54
Discharge Date and Time
Discharge Date/Time: 11/19/23 00:43
Print Language: URDU
[2023-11-18 22:29] LABS: Urine Albumin Negative (Neg - Trace); Urine Bilirubin Negative (Negative); Urine Character Clear (Clear); Urine Color Yellow; Urine Glucose Negative (Negative); Urine Ketone Negative (Negative); Urine Leukocyte Negative (Negative); Urine Nitrite Negative (Negative); Urine Occult Blood Negative (Negative); Urine Urobilinogen Negative (Neg - 1+)
[2023-11-19 00:41] VITALS: BP 143/74
== END 2023-11-19 00:43 | disposition home or self-care (01) ==
LOC: EMR 19:06
PROVIDERS: Emergency Medicine; Physician Assistant; EMERGENCY PHYSICIAN Emergency Medicine; FAMILY PHYSICIAN Family Medicine
DX: C64.9 Malignant neoplasm of unspecified kidney, except renal pelvis (principal); R31.9 Hematuria, unspecified; R14.0 Abdominal distension (gaseous); R79.89 Other specified abnormal findings of blood chemistry; R94.4 Abnormal results of kidney function studies; I48.91 Unspecified atrial fibrillation; I11.0 Hypertensive heart disease with heart failure; I50.9 Heart failure, unspecified; E78.00 Pure hypercholesterolemia, unspecified; Z88.1 Allergy status to other antibiotic agents; Z88.5 Allergy status to narcotic agent; Z88.2 Allergy status to sulfonamides
CPT/HCPCS: 99284; 51701; 74176; 80053; 81003; 85025; 86850; 86870; 86880; 86900; 86901

== ENCOUNTER 2023-11-26 08:02 | Emergency (ER) | payer MEDICARE, SELFPAY ==
[2023-11-26 08:06] VITALS: BP 125/62
[2023-11-26 09:11] LABS: % Basophils 0.8 % (0-2); % Eosinophils 4.5 % (0-6); % Immature Granulocytes 0.4 % (0-0.5); % Lymphocytes 7.9 % (20.5-51.1); % Neutrophils 77.4 % (42.2-75.2); Absolute Basophils 0.1 10^3/uL (0-0.2); Absolute Eosinophils 0.3 10^3/uL (0-0.7); Absolute Lymphocytes 0.6 10^3/uL (1.2-3.4); Absolute Monocytes 0.7 10^3/uL (0.1-0.6); Absolute Neutrophils 5.9 10^3/uL (1.4-6.5); Hematocrit 30.9 % (39.0-52.0); Hemoglobin 10.6 g/dL (13.0-18.0); Mean Corp Hgb Conc. 34.3 g/dL (33.0-37.0); Mean Corpuscular Hgb 30.5 pg (27.0-31.0); Mean Corpuscular Volume 88.8 fL (80.0-94.0); Mean Platelet Volume 10.3 fL (7.4-10.4); Nucleated Red Blood Cells % 0 % (-); Platelet Count 149 10^3/uL (130-400); Red Blood Cell Count 3.48 10^6/uL (4.70-6.10); Red Cell Dist. Width 16.3 % (11.5-14.5); White Blood Cell Count 7.6 10^3/uL (4.8-10.8)
[2023-11-26 09:28] LABS: Blood Urea Nitrogen 82 mg/dl (9-20); Calcium 8.7 mg/dl (8.4-10.2); Carbon Dioxide 22 mmol/L (22-30); Chloride 106 mmol/L (98-107); Glucose 99 mg/dl (70-99); Sodium 134 mmol/L (135-145)
--- NOTE | 2023-11-26 09:29 | ED.GENMED ---
History of Present Illness
General
Chief Complaint: Fall
Time Seen by Provider: 11/26/23 08:26
History of Present Illness
History of Present Illness:
88 history of paroxysmal A-fib no longer on Eliquis, left, hypertension, hyperlipidemia, and recently diagnosed renal cancer presents to the emergency department for evaluation of right knee pain after a minor fall. He states he felt weak in the
legs ambulate, denies head strike or loss of consciousness.
Past History
Past History
ED Past Medical History: Arrthythmia (Atrial fibrillation), HTN, Hypercholesterolemia and Other (Renal insufficiency)
ED Past Surgical History: None
Patient has exhibited threatening behavior?: No
PSI?: No
Social History
Tobacco: Non-smoker
Alcohol: None
Drug: None
Personal:
Living: with family
Review of Systems
Review of Systems
Allergies reviewed?: Yes
All Other Systems: ROS reviewed and negative except as documented in HPI and ROS
Phy Exam
Physical Exam
Physical Exam:
GEN: Well appearing, NAD, WDWN
HEENT: Oral mucosa moist, no scleral icterus
Cardiac: Regular rate
Lung: No respiratory distress, no tachypnea
MSK: No gross deformity or injuries. Minor abrasion to the anterior right knee with no active bleeding, no deformity
Skin: Good color, no pallor or jaundice, no rashes
Neuro: Alert and oriented x 3, no focal deficits
Psych: Calm, cooperative
Course
Orders/Labs/Results
Orders:
Orders
11/26/23 08:10
Knee, Right 4 or More Views [CR Knee- Right 4 Or More View*] Urgent
Comment:
Reason For Exam: fall, injury
11/26/23 08:53
Basic Metabolic Panel Urgent
Complete Blood Count/With Diff Urgent
Abnormal Lab Results
11/26/23
08:53
RBC 3.48 L 10^6/uL
(4.70-6.10)
Hgb 10.6 L g/dL
(13.0-18.0)
Hct 30.9 L %
(39.0-52.0)
RDW 16.3 H %
(11.5-14.5)
Absolute Lymphs (auto) 0.6 L 10^3/uL
(1.2-3.4)
Absolute Monos (auto) 0.7 H 10^3/uL
(0.1-0.6)
Neutrophils % 77.4 H %
(42.2-75.2)
Lymphocytes % 7.9 L %
(20.5-51.1)
Sodium 134 L mmol/L
(135-145)
BUN 82 H mg/dl
(9-20)
Creatinine 1.9 H mg/dL
(0.7-1.3)
11/26/23 08:53
11/26/23 08:53
Vital Signs
Initial and Last Documented VS:
Initial Vital Signs
Temp Pulse Resp BP Pulse Ox
98.2 F 53 16 125/62 95
11/26/23 08:06 11/26/23 08:06 11/26/23 08:06 11/26/23 08:06 11/26/23 08:06
Last Documented Vital Signs
Temp Pulse Resp BP Pulse Ox
98.2 F 50 16 128/69 97
11/26/23 08:06 11/26/23 10:54 11/26/23 10:54 11/26/23 10:54 11/26/23 10:54
MDM/Problems Addressed
MDM/Problems Addressed:
There was no reported head strike and the patient offers no complaints of head or neck pain. Right knee x-rays are grossly unremarkable. Labs were obtained as he reported mild weakness but he no longer reports this symptom. Labs are reassuring
and his renal function is improved compared to prior. Discharged to the care of family
*Critical Care Note
Total Time (30-74mins, 75-104mins- exclusive of procedures): Not Applicable
ED Attending Note
-
Portions of this chart may have been created with voice recognition software.� Occasional wrong word or��sound alike� substitutions may have occurred due to the inherent limitations of voice recognition software.
Discharge Plan
Departure
Patient Disposition: Home (Routine Discharge)
Date of Disposition: 11/26/23
Time of Disposition: 10:28
Patient with high blood pressure during this ER visit?: No
Discharge Problem:
Abrasion of knee, right, Fall from ground level
Instructions: Preventing falls in adults
Prescriptions:
No Action
allopurinol 100 MG tablet
100 mg PO NOON
simvastatin 20 MG tablet
20 mg PO HS
finasteride 5 MG tablet
5 mg PO DAILY
PreserVision AREDS 4,296 mcg-226 mg-90 mg Capsule
1 cap PO BID
carvedilol 3.125 mg Tablet
3.125 mg PO BID Qty: 60 0RF
Eliquis 2.5 mg Tablet
2.5 mg PO BID
furosemide 40 mg Tablet
80 mg PO SUTUTHSA@0800
cetirizine [Zyrtec] 10 mg Tablet
10 mg PO DAILY PRN (Reason: allergies)
metolazone 5 mg Tablet
5 mg PO DAILYPRN PRN (Reason: edema)
fluticasone propionate 50 mcg/actuation [place],Suspension
2 spray INTRANASAL DAILY PRN (Reason: allergies)
escitalopram oxalate 5 mg Tablet
15 mg PO NOON
furosemide 40 mg tablet
120 mg PO MOWEFR@0800
albuterol sulfate 90 mcg/actuation HFA aerosol inhaler
2 puff inhalation R Q6HPRN PRN (Reason: shortness of breath or wheezing)
cefdinir 300 mg capsule
300 mg PO DAILY Qty: 8 0RF
Referrals:
Boris Espana MD [Family Provider] -
Interventions
Interventions:
*Risk Screen - Suicide Last Done: 11/26/23 08:06
*General Assessment Last Done: 11/26/23 08:06
*Neglect/Abuse Screening Last Done: 11/26/23 08:06
ED- Fall Risk Assessment Last Done: 11/26/23 10:55
*ED COVID-19 Vaccine History Last Done: 11/26/23 10:55
*Nursing Disposition Last Done: 11/26/23 10:55
ED-Musculoskeletal Assessment Last Done: 11/26/23 08:40
ED- Neurological Assessment Last Done: 11/26/23 08:40
ED-Skin Assessment Last Done: 11/26/23 08:40
Discharge Date and Time
Discharge Date/Time: 11/26/23 10:55
Print Language: UPPER SORBIAN
[2023-11-26 10:54] VITALS: BP 128/69
== END 2023-11-26 10:55 | disposition home or self-care (01) ==
LOC: EMR 08:02
PROVIDERS: Physician Assistant; EMERGENCY PHYSICIAN Emergency Medicine; FAMILY PHYSICIAN Family Medicine
DX: S80.211A Abrasion, right knee, initial encounter (principal); W18.30XA Fall on same level, unspecified, initial encounter; I10 Essential (primary) hypertension; E78.00 Pure hypercholesterolemia, unspecified; Z96.651 Presence of right artificial knee joint
CPT/HCPCS: 99284; 73564; 80048; 85025